=== PATIENT | female | born 1990 | race Hispanic/Latino ===

== ENCOUNTER 2019-03-12 19:06 | Inpatient (IN) | payer MEDICAID ==
[2019-03-12 19:22] VITALS: BMI 35.4
--- NOTE | 2019-03-12 19:37 | ED PDOC ---
Arrival/HPI - General Chief Complaint: Psychiatric Evaluation Time Seen by Provider: 03/12/19 19:17 Historian: Patient - History of Present Illness Narrative History of Present Illness (Text): 03/12/19 19:17 Alex Raman is a 29 year old female, with a history of depression, anxiety, and ADHD, who presents for psychiatric admission from [facility]. Patient appreciates recent history of worsening depression and occasional suicidal ideation. Patient states she "feels fine" denies any somatic complaints. No suicidal ideation at present time. Patient denies fevers, chills, headache, dizziness, shortness of breath, chest pain, abdominal pain, nausea, vomiting, diarrhea, dysuria, hematuria, or any other complaints. Time/Duration: Prior to Arrival Symptom Onset: Gradual Symptom Course: Worsening Activities at Onset: Light Past Medical History - Provider Review Nursing Documentation Reviewed: Yes - Cardiac Hx Cardiac Disorders: No - Pulmonary Hx Asthma: Yes - Neurological Hx Neurological Disorder: No - HEENT Hx HEENT Disorder: No - Renal Hx Renal Disorder: No - Endocrine/Metabolic Hx Endocrine Disorders: No - Hematological/Oncological Hx Blood Disorders: No - Integumentary Hx Dermatological Disorder: No - Musculoskeletal/Rheumatological Hx Musculoskeletal Disorders: No - Gastrointestinal Hx Gastrointestinal Disorders: No - Genitourinary/Gynecological Hx Genitourinary Disorders: No - Psychiatric Hx Psychophysiologic Disorder: Yes Hx Anxiety: Yes Hx Substance Use: Yes (heroin) - Anesthesia Hx Anesthesia: No Family/Social History - Physician Review Nursing Documentation Reviewed: Yes Family/Social History: Unknown Family HX Smoking Status: Never Smoked Hx Alcohol Use: No Hx Substance Use: Yes (heroin) Allergies/Home Meds Allergies/Adverse Reactions: Allergies No Known Allergies Allergy (Verified 03/12/19 23:42) Home Medications: Home Meds Medication Instructions Recorded Confirmed Desvenlafaxine Succinate [Pristiq] 03/12/19 Sebree Carbonate [Sebree 03/12/19 03/12/19 Carbonate 150MG] Review of Systems - Physician Review All systems were reviewed & negative as marked: Yes - Review of Systems Constitutional: absent: Fevers, Other (chills) Respiratory: absent: SOB Cardiovascular: absent: Chest Pain Gastrointestinal: absent: Abdominal Pain, Diarrhea, Nausea, Vomiting Genitourinary Female: absent: Dysuria, Hematuria Neurological: absent: Headache, Dizziness Psychiatric: Depression, Suicidal Ideation Physical Exam Vital Signs Reviewed: Yes Temperature: Afebrile Blood Pressure: Normal Pulse: Regular Respiratory Rate: Normal Appearance: Positive for: Well-Appearing, Non-Toxic, Comfortable Pain Distress: None Mental Status: Positive for: Alert and Oriented X 3 - Systems Exam Head: Present: Atraumatic, Normocephalic Pupils: Present: PERRL Extroacular Muscles: Present: EOMI Conjunctiva: Present: Normal Mouth: Present: Moist Mucous Membranes Neck: Present: Normal Range of Motion Respiratory/Chest: Present: Clear to Auscultation, Good Air Exchange. No: Respiratory Distress, Accessory Muscle Use Cardiovascular: Present: Regular Rate and Rhythm, Normal S1, S2. No: Murmurs, Rub, Gallop Abdomen: Present: Normal Bowel Sounds. No: Tenderness, Distention, Peritoneal Signs, Rebound, Guarding Back: Present: Normal Inspection Upper Extremity: Present: Normal Inspection. No: Cyanosis, Edema Lower Extremity: Present: Normal Inspection. No: Edema Neurological: Present: GCS=15, CN II-XII Intact, Speech Normal Skin: Present: Warm, Dry, Normal Color. No: Rashes Psychiatric: Present: Alert, Oriented x 3, Normal Insight, Normal Concentration Medical Decision Making ED Course and Treatment: 03/12/19 19:17 Impression: Alex Raman is a 29 year old female, with a history of depression, anxiety, and ADHD, who presents for psychiatric admission from [facility]. Plan: -- Reassess and disposition Prior Visits: Notes and results from previous visits were reviewed. Progress Notes: - Scribe Statement The provider has reviewed the documentation as recorded by the Scribe Elpidio Mack All medical record entries made by the Scribe were at my direction and personally dictated by me. I have reviewed the chart and agree that the record accurately reflects my personal performance of the history, physical exam, medical decision making, and the department course for this patient. I have also personally directed, reviewed, and agree with the discharge instructions and disposition. Disposition/Present on Arrival - Present on Arrival Any Indicators Present on Arrival: No History of DVT/PE: No History of Uncontrolled Diabetes: No Urinary Catheter: No History of Decub. Ulcer: No History Surgical Site Infection Following: None - Disposition Have Diagnosis and Disposition been Completed?: Yes Diagnosis: MDD (major depressive disorder) Disposition: HOSPITALIZED Disposition Time: 19:27 Patient Problems: Current Active Problems Problem Status Onset ADHD Acute Bipolar 1 disorder Acute MDD (major depressive disorder) Acute Opioid use disorder Acute Condition: GOOD
[2019-03-12] MEDS ORDERED: Alum-Mag Hydrox-Simethicone Susp (30 mL) PO PRN (22:49)
[2019-03-12] MEDS ORDERED: Magnesium Hydroxide Susp 30 ml UD PO PRN (22:49)
--- NOTE | 2019-03-12 23:48 | PCM.BM ---
<Sangeeta Sun - Last Filed: 03/12/19 23:45> Treatment Plan Problems - Problems identified on initial assessmt Suicidal Ideation Date Initiated: 03/12/19 Time Initiated: 23:46 Assessment reference: NA Status: Active Ineffective Coping Date Initiated: 03/12/19 Time Initiated: 23:47 Assessment reference: NA Status: Active Hopelessness/Helplessness Date Initiated: 03/12/19 Time Initiated: 23:48 Assessment reference: NA Status: Active Low Motivation to Change Date Initiated: 03/12/19 Time Initiated: 23:48 Assessment reference: NA Status: Active Defensive Coping Date Initiated: 03/12/19 Time Initiated: 23:49 Assessment reference: NA Status: Active Treatment assets and liabiliti Patient Assests: adapts well, cooperative, educated, ADL independent, good support system Patient Liabilities: physical pain, substance abuse, medical problems - Milieu Protocol Maintain good personal hygiene: daily Encourage regular showers, daily Remind patient to perform daily oral care, daily Assist patient to perform ADL's Maintain personal safety: every other day Educate patient to report safety concerns to staff, every other day Monitor environment for contraband/sharps Medication safety: Monitor for expected outcome, potential side effects: every other day, Assess barriers to learning: every other day, Assess readiness for medication education: every other day Family Contact Family involvement: Family/SO is involved <Mary Lou Bauer - Last Filed: 03/13/19 15:04> - Diagnosis (1) ADHD Status: Acute Interventions: 03/13/19 15:06 We will not resume stimulants, will start Wellbutrin (2) Opioid use disorder Status: Acute Interventions: 03/13/19 15:06 Pharmacotherapy for alcohol/benzos/opioid dependence Maintaining sobriety Relapse prevention Possible rehabilitation Motivational interviewing 12-step programs: AA meetings (3) Bipolar 1 disorder Status: Acute Interventions: 03/13/19 15:05 Psychoeducation Psychopharmacology/adjustment of medications as needed/ monitoring possible side effects Monitor blood level of mood stabilizers Evaluate pt on daily basis Compliance with medications and follow up appointments Suicide and homicide risk assessment and prevention, coping strategies, safety plan Relapse prevention Reduction of symptoms Improve functional status Family involvement As outpatient: cognitive behavioral therapy <Nidhi Borrero - Last Filed: 03/14/19 12:24> Family Contact Family involvement: Family/SO is involved Family contact: Patient agrees to contact Family contact name: Christa Raman(mother) Family contacted how many times per week?: 2 <Allie Byers - Last Filed: 03/14/19 15:11>
[2019-03-13 04:59] VITALS: O2SAT 99
[2019-03-13 08:00] LABS: GLUCOSE,FASTING 104 mg/dL (65-110); HDL CHOLESTEROL 59 mg/dL (29-60)
[2019-03-13] MEDS ORDERED: Venlafaxine 75 mg ER Cap PO SCH (08:00)
[2019-03-13 08:12] LABS: LDL CHOLESTEROL 156 mg/dL (0-129)
--- NOTE | 2019-03-13 15:04 | PCM.PSYCH ---
Initial Psychiatric Evaluation - Initial Psychiatric Evaluation Type of Admission: Voluntary Legal Status: Capacity Chief Complaint (in patient's own words): "I stopped using heroine 3 months ago, for the past 3 months I am getting worse and worse, lately I was not able to take a shower, I have wish not to be alive anymore, I was thinking of overdose on sleeping pills." Patient's Reaction to Hospitalization: pt was transferred from the [facility] for evaluation of worsening of depression, possible suicidal ideation. History of Present Illness and Precipitating Events: Shortly, Alex Raman is a 29 year old female, with a history of depression, anxiety, and ADHD, denied previous psychiatric admissions, denied previous suicidal attempts, patient initially presented at [facility] with her mother, complaining of worsening depression, inability to function, suicidal ideation, patient required further hospitalization starvation/medication adjustment and acute psychiatric inpatient unit, transfer was uneventful. Patient was seen and examined today at the treatment team meeting with medical student. Patient presented with very poor personal hygiene, good ADLs, long/greasy/uncombed blue hair, patient presented to be emotional labile, crying/smiling/laughing. Patient reported that she has history of opioid addiction, patient reported being sober for past 3 months, as a result patient became depressed, "I had no motivation to do anything, I was staying in bed all day long, I was feeling hopeless, helpless, I was not able to take shower, small task seems to be impossible to do", patient reported that she had occasional suicidal ideation, no intent or plan, "but I was thinking about to overdose on sleeping pills as an option, but I would never do so." Patient reported that she had history of being irritable, mind racing, inability to fall asleep and to stay asleep, multitasking, with no productivity. Patient reported that she was diagnosed with bipolar disorder and ADHD in the past. Patient denied hearing voices, denied seeing things, denied paranoid ideations and patient does not present to be psychotic. Patient reported that she was feeling anxious "on and off" but she is not suffering from anxiety spectrum disorder. Patient reported that she smokes about 4 cigarettes a day or less than that, nicotine patch offered, counseling provided. Patient reported that she also smokes electronic cigarettes and her primary care physician is prescribing medical marijuana to her. Patient denied drinking alcohol, denied other drugs consumption. Past psychiatric history: Patient reported that she was diagnosed with bipolar disorder by her psychiatrist in the past, patient also had testing for ADHD, patient reported that she was prescribed Adderall, patient reported that the present moment she is not seeing psychiatrist and her primary care physician is prescribing all of the medications. Patient denies history of suicidal attempts, never been admitted to the psychiatric inpatient unit. h/o detox at [facility]. Medical history: Stroke asthma, history of Lyme's disease. Family history: Mood spectrum disorder, questionable suicidal attempts. Medical records reviewed: Urine drug screen was positive for benzodiazepines, amphetamines, opioids and cannabis. med list confirmed by pharmacy: vyvance 70mg po daily addearral 30mg po bid pristiq 100mg daily lithium carbonate 300mg 3xat night albuterol 2puff qid junel 1mg/20 (once a dya) lst filled February 18/2019. Lab Results 03/13/19 07:40: RPR Nonreactive 03/13/19 07:40: TSH 3rd Generation 2.02 03/13/19 07:40: Fasting Glucose 104, Triglycerides 123, Cholesterol 244 H, LDL C holesterol Direct 156 H, HDL Cholesterol 59 Vital Signs Temp Pulse Resp BP Pulse Ox 03/13/19 06:32 97.5 F L 59 L 18 134/91 H 03/12/19 22:51 98.5 F 82 18 135/93 H 99 03/12/19 19:52 97.8 F 84 16 136/93 H 100 The patient failed the outpatient lower level of care: Yes Current Medications: Active Medications Generic Name Dose Route Start Last Admin Trade Name Freq PRN Reason Stop Dose Admin Acetaminophen 650 mg 03/12/19 22:49 Tylenol 325mg Tab PO Q6H PRN Fever >100.4 F Al Hydrox/Mg Hydrox/Simethicone 30 ml 03/12/19 22:49 Maalox Plus 30 Ml PO DAILY PRN Indigestion / Heartburn Clonazepam 0.5 mg 03/12/19 21:12 03/13/19 00:37 Klonopin PO 0.5 mg Q8H PRN Administration Anxiety Protocol Magnesium Hydroxide 30 ml 03/12/19 22:49 Milk Of Magnesia PO DAILY PRN Constipation Venlafaxine HCl 75 mg 03/13/19 08:00 Effexor Xr PO DAILY NESSA Zaleplon 10 mg 03/12/19 21:12 03/12/19 21:51 Sonata PO 10 mg HS PRN Administration Insomnia Present on Admission - Present on Admission Any Indicators Present on Admission: No History of DVT/PE: No History of Uncontrolled Diabetes: No Urinary Catheter: No Decubitus Ulcer Present: No Review of Systems - Review of Systems Systems not reviewed;Unavailable: Acuity of Condition - Constitutional Constitutional: As Per HPI - EENT Eyes: As Per HPI Ears: As Per HPI Nose/Mouth/Throat: As Per HPI - Breasts Breasts: As Per HPI - Cardiovascular Cardiovascular: As Per HPI - Respiratory Respiratory: As Per HPI - Gastrointestinal Gastrointestinal: As Per HPI - Genitourinary Genitourinary: As Per HPI - Reproductive: Female Reproductive:Female: As Per HPI - Menstruation Menstruation: As Per HPI - Musculoskeletal Musculoskeletal: As Per HPI - Integumentary Integumentary: As Per HPI - Neurological Neurological: As Per HPI - Psychiatric Psychiatric: As Per HPI - Endocrine Endocrine: As Per HPI - Hematologic/Lymphatic Hematologic: As Per HPI Past Patient History - Past Psychiatric History Previous Treatment History: None Prior Professional Help: See HPI Prior Psychiatric Treatment: See HPI At what hospital: See HPI Duration: See HPI Nature of Treatment: See HPI Explanation of prior treatment: See HPI - PSYCHIATRIC Hx Anxiety: Yes Hx Depression: Yes Hx Substance Use: Yes - CARDIAC Hx Cardiac Disorders: No - PULMONARY Hx Asthma: Yes - NEUROLOGICAL Hx Neurological Disorder: No - HEENT Hx HEENT Problems: No - RENAL Hx Chronic Kidney Disease: No - ENDOCRINE/METABOLIC Hx Endocrine Disorders: No - HEMATOLOGICAL/ONCOLOGICAL Hx Blood Disorders: No - INTEGUMENTARY Hx Dermatological Problems: No - MUSCULOSKELETAL/RHEUMATOLOGICAL Hx Musculoskeletal Disorders: No - GASTROINTESTINAL Hx Gastrointestinal Disorders: No - GENITOURINARY/GYNECOLOGICAL Hx Genitourinary Disorders: No - SURGICAL HISTORY Hx Surgeries: No - ANESTHESIA Hx Anesthesia: No - Medical/Surgical History Reviewed & confirmed: by ct Meds Allergies/Adverse Reactions: Allergies Allergy/AdvReac Type Severity Reaction Status Date / Time No Known Allergies Allergy Verified 03/12/19 23:42 Mental Status Examination - Personal Presentation Personal Presentation: Looks stated age - Affect Affect: Other (labile) - Motor Activity Motor Activity: Calm - Reliability in Providing Information Reliability in Providing Information: Fair - Speech Speech: Organized - Mood Mood: Depressed, Anxious - Formal Thought Process Formal Thought Process: No Impairment - Obsessions/Compulsions Obsessions: None Compulsions: None - Cognitive Functions Orientation: Person, Place, Situation, Time Sensorium: Alert Attention/Concentration: Easily distracted Abstract Thinking: [place] Estimate of Intelligence: Average Judgement: Intact, as evidence by: Insight regarding need for hospitalization - Risk Risk: Suicidal, Diminished functioning - Strength & Assets Inventory Strength & Assets Inventory: Intelligence, Family support, Cooperative, Other (Good physical health, no psychosis, good support from family) - Limitations Limitations: Other (drugs) Psychiatric Physical Exam - Physical Exam Reviewed and confirmed: Emergency Department Physical Exam Results - Vital Signs Recent Vital Signs: Last Vital Signs Temp 97.5 F L 03/13/19 06:32 Pulse 59 L 03/13/19 06:32 Resp 18 03/13/19 06:32 BP 134/91 H 03/13/19 06:32 Pulse Ox 99 03/12/19 22:51 - Labs Labs: Laboratory Results - last 24 hr 03/13/19 03/13/19 07:40 07:40 Fasting Glucose 104 Triglycerides 123 Cholesterol 244 H LDL Cholesterol Direct 156 H HDL Cholesterol 59 TSH 3rd Generation 2.02 - EKG Data EKG Interpreted by: ER Physician DSM Plan - DSM 5 DSM 5 Diagnosis: History of bipolar disorder Questionable ADHD Rule out substance-induced mood disorder Urine drug screen was positive for cannabis/opioid/benzodiazepines, rule out misuse and abuse of substances Opioid use disorder - Recommended/Plan of Treatment Treatment Recommendations and Plan of Treatment: Milieu/structure/supportive therapy SW consultation for discharge plan and social issues Med management Abilify 2.5 mg twice a day for mood stabilization Wellbutrin 100 mg twice a day for depression and ADHD Klonopin 0.5 mg twice daily and at bedtime for anxiety Ambien 5 mg as needed for insomnia We will not resume stimulants as of now Family involvement Family involvement Follow up on labs Will monitor closely Pt was educated about risk/benefits and alternatives of medications, coping strategies (safety plan, suicide prevention), relapse prevention, importance of follow up with psychiatrist and therapist, stay away from drugs/alcohol/smoking Projected ELOS: 7 days Prognosis: Vomited Discharge Plan and Discharge Criteria: Patient will pose no imminent danger to self or others - Tobacco Cessation Tobacco Use Status for the last 30 days: Light User(<=4 cigs daily, cigar/pipes not daily,or smokeless tobacco) Tobacco Use Treatment Practical Counseling Provided: Yes Tobacco Use Treatment FDA-Approved Cessation Medication Provided: Yes Type of Medication Provided: Nicoderm CQ - Alcohol or Substance Abuse Does the patient have an Alcohol or Substance Abuse Disorder: Yes Initial Psych Certification - Initial Certification I certify that the inpatient psychiatric facility admission was medically necessary for either: Treatment which could reasonbly be expected to improve pt's condition I estimate of hospitalization is necessary for proper treatment of the patient: 7 Unit of Time: Days My plans for post-hospital care for this patient are: Diagnosis program versus inpatient rehab, IOP
[2019-03-13] MEDS ORDERED: Albuterol HFA 90 mcg/actuation (8 g) IH PRN (21:24)
--- NOTE | 2019-03-14 07:58 | CON ---
DATE OF CONSULTATION: 03/13/2019 PULMONARY CONSULTATION REFERRING PHYSICIAN: Dr. Barreto. REASON FOR CONSULTATION: Chronic obstructive lung disease, may have sleep apnea syndrome. HISTORY OF PRESENT ILLNESS: This is a 29-year-old female with past medical history significant for bipolar disorder, history of chronic obstructive lung disease, smoker, history of substance abuse, also carry a diagnosis of ADHD, came in to psychiatry floor through emergency room. Apparently, she had been very depressed. She also used to smoke marijuana in the past, admit to have snoring, daytime sleepy, and tired. No nausea, vomiting, diarrhea, leg pain, or leg swelling. PAST MEDICAL HISTORY: As per history of present illness. ALLERGIES: NONE KNOWN. SOCIAL HISTORY: Positive history of smoking, also positive history of marijuana smoke, as well as had used in the past. FAMILY HISTORY: No significant cardiopulmonary disease reported. MEDICATIONS: She is on Abilify 2.5 mg twice a day, Ambien 5 mg at bedtime, Ativan 2 mg every 6 hours p.r.n., Geodon 20 mg every 6 hours p.r.n., Klonopin 0.5 mg twice a day, milk of magnesia p.r.n., Nicoderm patch daily, Wellbutrin 100 mg twice a day. REVIEW OF SYSTEMS: No headache, no rhinitis, no cough, no sputum production, admits to have snoring, daytime sleepy and tired. No nausea, no vomiting, no diarrhea, no leg pain, and no leg swelling. PHYSICAL EXAMINATION: GENERAL: No acute distress. VITAL SIGNS: Temperature is 98, heart rate 71, respiratory rate is 18, blood pressure 131/88, pulse ox 99% on room air. HEENT: Moist mucous membrane. Crowded airway. NECK: Supple. No JVD. LUNGS: Have fair airflow with rhonchi. ABDOMEN: Soft, nontender, no organomegaly. EXTREMITIES: There is no edema. NEUROLOGIC: Awake, alert, and follows simple commands. LABORATORY DATA: Shows glucose 104, triglycerides 123, cholesterol 244, HDL cholesterol 59, TSH 2.05. RPR being nonreactive. IMPRESSION AND PLAN: Bipolar disorder with major depression at present, history of attention deficit hyperactivity disorder, history of substance abuse may have chronic lung disease, there may be a component of sleep apnea syndrome. Agree with Dr. Barreto with the present management. We will add Ventolin HFA every 4 hours p.r.n., sleep apnea precaution, keep head at 45 degrees, gastric prophylaxis, may add statins. Upon discharge, as outpatient she should have a sleep study and PFT. Thank you and we will follow with you. Gilberto Del Rio MD
--- NOTE | 2019-03-14 13:51 | PCM.PYCHPN ---
Psychiatric Progress Note - Psychiatric Progress Note Patient seen today, length of contact: 30min Patient Chief Complaint: "I don't understand why you are not recommending me to continue my adderral and vyvance, I disagree that Marijuana is bad choice for me..." Problems Identified/Issues Discussed: Risk, benefits, alternatives of the medications, substance abuse/addiction, treatment options, inpatient rehab referral. Medical Problems: See HPI Diagnostic Results: Lab Results 03/13/19 07:40: RPR Nonreactive 03/13/19 07:40: TSH 3rd Generation 2.02 03/13/19 07:40: Fasting Glucose 104, Triglycerides 123, Cholesterol 244 H, LDL Cholesterol Direct 156 H, HDL Cholesterol 59 Vital Signs Temp Pulse Resp BP Pulse Ox 03/14/19 13:34 132/87 03/14/19 07:15 98.4 F 82 20 132/87 03/13/19 16:00 71 131/88 03/13/19 06:32 97.5 F L 59 L 18 134/91 H 03/12/19 22:51 98.5 F 82 18 135/93 H 99 03/12/19 19:52 97.8 F 84 16 136/93 H 100 DSM 5 Symptoms Update: Shortly, Alex Raman is a 29 year old female, with a history of depression, anxiety, and ADHD, denied previous psychiatric admissions, denied previous suicidal attempts, patient initially presented at [facility] with her mother, complaining of worsening depression, inability to function, suicidal ideation, patient required further hospitalization starvation/medication adjustment and acute psychiatric inpatient unit, transfer was uneventful. Patient was seen and examined today at the treatment team meeting with healthcare social worker, mental health worker, RN, medical. Patient presented with acceptable personal hygiene but seems to be careless about her appearance, has long/uncombed hair colored blue. Patient was fixated on Adderall as well as Vyvanse, patient was not able to understand the rationale behind this development writer decision to discontinue stimulants. Patient also disagreed that marijuana,which was prescribed to the patient by primary care physician, is not a good choice for her. Patient has tendency of bleeding staff, has difficulty to understand what was the main reason for her to be admitted to the psychiatric inpatient unit. Patient is irritable, wants to be on stimulants, patient refused referral to go to inpatient rehab, but agreed to be referred to the treatment program at [facility]. As per collateral information from the staff patient has tendency of yelling/screaming at her mother over the phone, patient reported that she has tendency for irrational and agitated behavior but no physical aggression. So far patient tolerates medications well, no side effects observed or reported, aims 0, no EPS. Impression: DSM 5 Diagnosis: History of bipolar disorder Questionable ADHD Rule out substance-induced mood disorder Urine drug screen was positive for cannabis/opioid/benzodiazepines, rule out misuse and abuse of substances Opioid use disorder Medication Change: Yes (Klonopin increased) Medical Record Reviewed: Yes Consults ordered or reviewed: Medical consult and pulmonology consult requested Mental Status Examination - Cognitive Function Orientation: Person, Place, Situation, Time Memory: Intact Attention: Poor Concentration: Poor Association: WNL Fund of Knowledge: WNL - Mood Mood: Depressed, Anxious - Affect Affect: Constricted (Irritable and angry) - Speech Speech: Appropriate (But overproductive) - Formal Thought Process Formal Thought Process: No Impairment - Suicidal Ideation Suicidal Ideation: No - Homicidal Ideation Homicidal Ideation: No Goal/Treatment Plan - Goal/Treatment Plan Need for Continued Stay: Remain at risks for inpatient hospitalization, Severe depression anxiety, Discharge may exacerbated symptoms, Severe functional impairment Progress Toward Problem(s) and Goals/Treatment Plan: Milieu/structure/supportive therapy SW consultation for discharge plan and social issues Med management Abilify 5 mg twice a day for mood stabilization Wellbutrin 100 mg twice a day for depression and ADHD Klonopin 1 mg twice daily and at bedtime for anxiety Ambien 5 mg as needed for insomnia We will not resume stimulants as of now Family involvement Family involvement Follow up on labs Will monitor closely Pt was educated about risk/benefits and alternatives of medications, coping strategies (safety plan, suicide prevention), relapse prevention, importance of follow up with psychiatrist and therapist, stay away from drugs/alcohol/smoking Estimated Date of D/C: 03/20/19
--- NOTE | 2019-03-14 16:15 | PN ---
DATE: 03/14/2019 PULMONARY PROGRESS NOTE REFERRING PHYSICIAN: Dr. Barreto. SUBJECTIVE: He sitting up in the chair, having lunch, night was unremarkable other than an episode of cough. No nausea or vomiting, diarrhea, leg swelling. PHYSICAL EXAMINATION VITAL SIGNS: Temperature is 98, heart rate 82, respiratory rate is 20, blood pressure 132/87, pulse of 99% on room air. HEENT: Moist mucous membrane. Crowded airway. Mallampati score is 4. NECK: Supple. No JVD. LUNGS: Has a fair airflow with few rhonchi. HEART: S1, S2. ABDOMEN: Soft, nontender. No organomegaly. EXTREMITIES: No edema. NEUROLOGIC: Awake, alert, and follows simple commands. LABORATORY DATA: Shows no new lab is available since yesterday. MEDICATIONS: She is on Abilify 2.5 mg twice a day.. Also Ambien 5 mg at bedtime, lorazepam 2 mg every 6 hours p.r.n., Geodon 20 mg every 6 hours p.r.n., Klonopin 0.5 mg at bedtime, Lipitor 20 mg daily, Maalox p.r.n. basis, Nicoderm patch daily, Norvasc 2.5 mg daily, Pepcid 20 mg daily, Tylenol p.r.n. basis, albuterol at bedtime 2 puffs every 6 hours p.r.n., Wellbutrin 100 mg twice a day. IMPRESSION AND PLAN: Bipolar disorder with major depression, history of attention deficit hyperactivity disorder, substance abuse, chronic lung disease may be component of sleep apnea syndrome. From Pulmonary point, doing okay. The patient request for rescue inhaler when she has cough and shortness of breath and sleep apnea precaution, keep head at 45 degrees, careful with sedation, gastric prophylaxis, fall precaution. We will recommend PFT and sleep study upon discharge as an outpatient. Thank you and we will follow with you. Gilberto Del Rio MD
--- NOTE | 2019-03-14 20:52 | CON ---
DATE: 03/14/2019 HISTORY OF PRESENT ILLNESS: I was called to Psychiatry for a consult to see her. I saw her in her room. She is a 29-year-old white female who presents for admission from [facility], worsening depression and suicidal ideation, just not doing well mentally. She is here with a pretty extensive medical history of asthma, anxiety, substance abuse with heroin. She tells me she has Lyme's disease and on steroids and then she had bilateral hip replacements. She has spine fractures, asthma and now she is here. She was taking Pristiq and lithium on the outpatient. ALLERGIES: NO KNOWN DRUG ALLERGIES. REVIEW OF SYSTEMS: No acute fevers or chills. No vision or hearing changes. No sore throat. No shortness of breath or cough. No chest pain. No palpitations. No nausea, vomiting, constipation and diarrhea. No problems urinating. No headaches or dizziness, depressed and suicidal. PHYSICAL EXAMINATION: VITAL SIGNS: She has 98.5 temperature, 82 pulse, 135/93 in the past blood pressure was 132/87, I will start her on blood pressure medications, 18 respiratory rate and 99% O2 sat on room air. HEENT: Head is atraumatic and normocephalic. Extraocular muscles are intact. Pupils reactive to light and accommodation. Throat is moist. NECK: Supple. HEART: Regular rate. Normal S1 and S2. LUNGS: Decreased breath sounds. Clear to auscultations. No wheezes. No rhonchi. No rales. ABDOMEN: Soft and nontender. Positive bowel sounds. No guarding. No rebound. No CVA tenderness. Mildly obese. EXTREMITIES: No edema. NEUROLOGIC: GCS is 15. Cranial nerves II through XII grossly intact. Speech is normal. SKIN: Warm and dry. No apparent rashes or ulcers. Alert and oriented x3. She can smell. She can close her eyes tight. She can stick her tongue in midline. She can raise her arms overhead. I do not like her history all that much. LABORATORY DATA: She has a nonreactive RPR of 104 fasting sugar, triglycerides are 123, cholesterol is high at 244, TSH is 2.02. PLAN: She is also going to get some tests done. She will be on amlodipine, a blood test. I am going to watch her closely and check her blood pressure and hopefully she will improve with her depression and suicidal thoughts as per Psychiatry, we will watch medically. Charles Snell DO
[2019-03-15 08:26] LABS: HEMOGLOBIN 13.6 g/dL (12.0-16.0); MEAN CELL VOLUME 83.6 fl (80.0-105.0); MEAN CORPUSCULAR HEMOGLOBIN 27.9 pg (25.0-35.0); MEAN CORPUSCULAR HGB CONC 33.4 g/dl (31.0-37.0); RBC 4.87 10^6/uL (3.5-6.1); WHITE BLOOD COUNT 7.1 10^3/uL (4.5-11.0)
[2019-03-15 08:31] LABS: ALB/GLOB RATIO 1.3 (1.1-1.8); ALBUMIN 4.5 g/dL (3.0-4.8); ALT/SGPT 15 U/L (7-56); AST/SGOT 16 U/L (14-36); BLOOD UREA NITROGEN 17 mg/dL (7-21); CALCIUM 9.5 mg/dL (8.4-10.5); GFR NON-AFRICAN AMERICAN > 60
--- NOTE | 2019-03-15 10:12 | PN ---
DATE: 03/15/2019 SUBJECTIVE: I saw her this morning in the psychiatric floor. She had many questions to me. She is asking why she is on blood pressure pills. I told her the blood pressure was elevated, it was as high as 136/93, after the blood pressure medication it is down to 122/81. She is eating well, going to the bathroom well. She also has questions about her cholesterol issues. Cholesterol was 244 and the LDL was 156, so she is now on atorvastatin 20. She does have high cholesterol and hypertension with her mother, otherwise mentally I think she may be improving a little bit. PHYSICAL EXAMINATION: VITAL SIGNS: She has a 98 temp, 73 pulse, 122/81 and 135/93 blood pressure, 20 respiratory rate. HEAD: Atraumatic, normocephalic. HEART: Regular rate. LUNGS: Clear to auscultation. ABDOMEN: Soft, obese, nontender. EXTREMITIES: No edema. LABORATORY DATA: Sodium 142, potassium 4.1, BUN 17, creatinine 0.9, GFR is greater than 60, sugar 99, calcium 9.5, total bili is 0.4. AST is 16, ALT is 15, alk phos 64, total protein 7.9, albumin is 4.5, cholesterol is 244, LDL is 156. HDL was 59. TSH is 2.02. White count 7.1, hemoglobin 13.6, hematocrit 40.7, platelets of 227. RPR is nonreactive. She will continue with the current medications, Abilify, Ambien, Ativan, Geodon, Klonopin, Lipitor, milk of magnesia, Maalox, Nicoderm, Norvasc, Pepcid, Tylenol, Ventolin, and Wellbutrin. I discussed at length the importance of quit smoking, also to watch her very healthy diet, to lose some weight and exercise. She understood and asked me lots of questions about that and hopefully, she will continue to improve as per Psychiatry. We will follow medically. She has had depression, suicidal ideation, bipolar, ADHD, asthma, hypertension, high cholesterol. Charles Snell DO
[2019-03-15] MEDS ORDERED: Albuterol HFA 90 mcg/actuation (8 g) IH PRN (11:24)
--- NOTE | 2019-03-15 11:53 | PCM.PYCHPN ---
Psychiatric Progress Note - Psychiatric Progress Note Patient seen today, length of contact: 30min Patient Chief Complaint: "I am not doing well, I will withdrawing from my Adderall" Problems Identified/Issues Discussed: Risk, benefits, alternatives of the medications, substance abuse/addiction, treatment options, inpatient rehab referral. Medical Problems: See HPI Diagnostic Results: Lab Results 03/13/19 07:40: RPR Nonreactive 03/13/19 07:40: TSH 3rd Generation 2.02 03/13/19 07:40: Fasting Glucose 104, Triglycerides 123, Cholesterol 244 H, LDL Cholesterol Direct 156 H, HDL Cholesterol 59 Vital Signs Temp Pulse Resp BP Pulse Ox 03/14/19 13:34 132/87 03/14/19 07:15 98.4 F 82 20 132/87 03/13/19 16:00 71 131/88 03/13/19 06:32 97.5 F L 59 L 18 134/91 H 03/12/19 22:51 98.5 F 82 18 135/93 H 99 03/12/19 19:52 97.8 F 84 16 136/93 H 100 DSM 5 Symptoms Update: Shortly, Alex Raman is a 29 year old female, with a history of depression, anxiety, and ADHD, denied previous psychiatric admissions, denied previous suicidal attempts, patient initially presented at [facility] with her mother, complaining of worsening depression, inability to function, suicidal ideation, patient required further hospitalization starvation/medication adjustment and acute psychiatric inpatient unit, transfer was uneventful. Patient was seen and examined today Nursing station, patient presented with some improvement of her personal hygiene, patient reported that her depression is getting better but she feels very uncomfortable because of "withdrawal from my Adderall" patient reported that she was on Adderall for past 6 years over patient was on Vyvanse. It took a while for this greeting card writer tried to explain the rationale for importance to be weaned off from Adderall, patient's mother will bring that medication and patient agreed slowly jeff down that medication. Patient also reported that she is willing to follow-up with a substance abuse day treatment program. pt c/o insomnia, ambien started. As per collateral information from the staff patient has tendency of yelling/screaming at her mother over the phone, patient reported that she has tendency for irrational and agitated behavior but no physical aggression. So far patient tolerates medications well, no side effects observed or reported, aims 0, no EPS. Impression: DSM 5 Diagnosis: History of bipolar disorder Questionable ADHD Rule out substance-induced mood disorder Urine drug screen was positive for cannabis/opioid/benzodiazepines, rule out misuse and abuse of substances Opioid use disorder Medication Change: Yes (Klonopin increased) Medical Record Reviewed: Yes Mental Status Examination - Cognitive Function Orientation: Person, Place, Situation, Time Memory: Intact Attention: Poor Concentration: Poor Association: WNL Fund of Knowledge: WNL - Mood Mood: Depressed, Anxious - Affect Affect: Constricted (Irritable and angry) - Speech Speech: Appropriate (But overproductive) - Formal Thought Process Formal Thought Process: No Impairment - Suicidal Ideation Suicidal Ideation: No - Homicidal Ideation Homicidal Ideation: No Goal/Treatment Plan - Goal/Treatment Plan Need for Continued Stay: Remain at risks for inpatient hospitalization, Severe depression anxiety, Discharge may exacerbated symptoms, Severe functional impairment Progress Toward Problem(s) and Goals/Treatment Plan: Milieu/structure/supportive therapy SW consultation for discharge plan and social issues Med management Abilify 5 mg twice a day for mood stabilization Wellbutrin 100 mg twice a day for depression and ADHD Klonopin 1 mg twice daily and at bedtime for anxiety Ambien 10 mg as needed for insomnia We will not resume stimulants as of now,possible resumption with the plan to wean off Family involvement Family involvement Follow up on labs Will monitor closely Pt was educated about risk/benefits and alternatives of medications, coping strategies (safety plan, suicide prevention), relapse prevention, importance of follow up with psychiatrist and therapist, stay away from drugs/alcohol/smoking Estimated Date of D/C: 03/20/19
--- NOTE | 2019-03-15 12:55 | PN ---
DATE: 03/15/2019 PULMONARY PROGRESS NOTE REFERRING PHYSICIAN: Mary Lou Bauer MD SUBJECTIVE: The patient is seen walking in hallway. No acute distress. No overnight events reported. States that she still has episodes of coughing in the morning. No headache, rhinitis, shortness of breath, chest pain, abdominal pain, nausea, vomiting, diarrhea, leg pain, and leg swelling reported. OBJECTIVE: GENERAL: No acute distress. VITAL SIGNS: Blood pressure 135/93, pulse 73, temperature 98. HEENT: Moist mucous membrane. Crowded airway. Mallampati score of 4. NECK: Supple. No JVD. LUNGS: Fair airflow bilaterally. CARDIOVASCULAR: S1 and S2. ABDOMEN: Soft and nontender. No distention. No organomegaly. EXTREMITIES: No bilateral lower extremity edema. NEUROLOGIC: Awake, alert and verbal. Following commands. MEDICATIONS: Reviewed. Tylenol 650 mg every 6 hours p.r.n. fever greater than 100.4, Maalox 30 mL p.o. daily p.r.n., Ventolin HFA 2 puffs inhalation every 6 hours p.r.n., Norvasc 2.5 mg daily, Abilify 2.5 mg twice a day, Lipitor 20 mg dinner, Wellbutrin 100 mg twice a day, Klonopin 0.5 mg at bedtime, Klonopin 1 mg twice a day p.r.n., Pepcid 20 mg h.s., Ativan 2 mg IM every 6 hours p.r.n., Ativan 2 mg p.o. every 6 hours p.r.n., milk of magnesia 30 mL p.o. daily p.r.n., nicotine patch transdermal daily, Geodon 20 mg every 6 hours p.r.n., Geodon 20 mg IM every 6 hours p.r.n., Ambien 10 mg at bedtime. LABORATORY DATA: Reviewed. WBC 7.1, RBC 4.87, hemoglobin 13.6, hematocrit 40.7, platelet 227. Sodium 142, potassium 4.1, chloride 106, carbon dioxide 26, anion gap 16, BUN 70, creatinine 0.9, GFR greater than 60, random glucose 99, calcium 9.5. Total bilirubin 3.4, AST 16, ALT 15, alkaline phosphatase 64, total protein 7.9, albumin 4.5, globulin 3.4, albumin-globulin ratio 1.3. IMPRESSION AND PLAN: Bipolar with major depression, history of attention deficit hyperactivity disorder, substance abuse, chronic lung disease, suspected sleep apnea syndrome. Pulmonary point of view, discussed with the patient yesterday to request from nursing p.r.n. inhaler. The patient has not requested and still continues to complain of cough, so we will place Ventolin HFA 2 puffs every 8 hours around the clock for cough and shortness of breath. Sleep apnea precaution, head of bed elevated to 45 degrees. Careful with sedation. Gastric prophylaxis. Fall precautions. Recommend the patient to have full pulmonary function test as outpatient to evaluate the extent of chronic lung disease. Recommend the patient to have sleep study as outpatient to evaluate for sleep apnea syndrome. We will also continue Ventolin on p.r.n. basis. The patient was seen and examined with Dr. Del Rio. Discussed assessment and plan as described above. The patient was seen and examined with Darrel Jaime, nurse practitioner. Discussed assessment and plan as described above. Thank you for this consult. We will follow with you. Darrel Jaime APN Gilberto Del Rio MD
[2019-03-15] MEDS: Albuterol HFA 90 mcg/actuation (8 g) IH SCH ×2 (13:26→20:16)
[2019-03-16] MEDS: Albuterol HFA 90 mcg/actuation (8 g) IH SCH ×3 (04:39→22:00)
--- NOTE | 2019-03-16 11:43 | PN ---
DATE: 03/16/2019 PULMONARY PROGRESS NOTE REFERRING PHYSICIAN: Mary Lou Bauer MD SUBJECTIVE: The patient is seen in dayroom. Reports feeling better today. Reports cough has improved. No acute distress. No overnight events reported. No headache, rhinitis, shortness of breath, chest pain, abdominal pain, nausea, vomiting, diarrhea, leg pain or leg swelling reported. OBJECTIVE: GENERAL: No acute distress. VITAL SIGNS: Blood pressure 137/93, pulse 91, temperature 97.5. HEENT: Moist mucous membranes. Mallampati score of 4. Crowded airway. NECK: Supple. No JVD. LUNGS: Fair airflow bilaterally. CARDIOVASCULAR: S1 and S2. ABDOMEN: Soft and nontender. No distention. No organomegaly. EXTREMITIES: No bilateral lower extremity edema. NEUROLOGIC: Awake, alert and verbal. Following commands. MEDICATIONS: Reviewed. Tylenol 650 mg every 6 hours p.r.n. fever greater than 100.4, Maalox 30 mL p.o. daily p.r.n., albuterol 2 puffs inhalation every 4 hours p.r.n., albuterol 2 puffs inhalation every 8 hours, Norvasc 5 mg p.o. daily, Abilify 2.5 mg twice a day, Lipitor 20 mg dinner, Wellbutrin 100 mg twice a day, Klonopin 0.5 mg at bedtime, Klonopin 1 mg twice a day p.r.n., Pepcid 20 mg at bedtime, Ativan 2 mg IM every 6 hours p.r.n., Ativan 2 mg p.o. every 6 hours p.r.n., milk of magnesia 30 mL p.o. daily, nicotine patch transdermal daily, Geodon 20 mg every 6 hours p.r.n., Geodon 20 mg IM every 6 hours p.r.n., Ambien 10 mg p.o. at bedtime. LABORATORY DATA: Reviewed. IMPRESSION AND PLAN: Bipolar major depression, history of attention deficit hyperactivity disorder, substance abuse, chronic lung disease, suspected sleep apnea syndrome. Pulmonary point of view, continue Ventolin inhaler, routine sleep apnea precaution, head of bed elevated at 45 degrees, gastric prophylaxis, careful with sedation, fall precautions. Recommend the patient have full pulmonary function test as outpatient to evaluate the extent of chronic lung disease. Recommend the patient have sleep study as outpatient to evaluate for sleep apnea syndrome. Continue smoking cessation. The patient was seen and examined with Dr. Del Rio. Discussed assessment and plan as described above. The patient was seen and examined with Darrel Jaime, nurse practitioner. Discussed assessment and plan as described above. Thank you for this consult and we will follow with you. Yeni Rojo APN Gilberto Del Rio MD
--- NOTE | 2019-03-16 13:18 | PN ---
DATE: 03/16/2019 SUBJECTIVE: I saw her this morning in the psychiatric floor. She has lots of questions about her blood pressure and why she needs the blood pressure medication. She does eat a lot of salt in her diet. I asked her to quit the salt and I am going to increase her Norvasc from 2.5 to 5 mg today because the blood pressure is a little bit elevated, otherwise, she is doing well improving with a mental illness. MEDICATIONS: She is on Abilify, Ambien, Ativan, Geodon, Klonopin, Lipitor for high cholesterol, milk of magnesia, Maalox, Nicoderm, she is going to try and quit smoking. I increase the Norvasc to 5 mg, Pepcid, Tylenol, Ventolin and Wellbutrin. PHYSICAL EXAMINATION: VITAL SIGNS: She has a 97.5 temp, 91 pulse, blood pressure went up to 137/93, 16 respiratory rate. HEENT: Head is atraumatic, normocephalic. HEART: Regular rate. LUNGS: Decreased breath sounds. ABDOMEN: Soft, obese. EXTREMITIES: No edema. ASSESSMENT AND PLAN: amlodipine. She is going to stop getting salt to all her food. She is going to watch her low cholesterol diet also. Follow with the health and human performance professor and psychiatrist and hopefully her blood pressure will come down. We will follow. Charles Snell DO MTDD
--- NOTE | 2019-03-16 16:11 | PCM.PYCHPN ---
Psychiatric Progress Note - Psychiatric Progress Note Patient seen today, length of contact: 30min Patient Chief Complaint: "this is the first day when I feel better..." Problems Identified/Issues Discussed: Risk, benefits, alternatives of the medications, substance abuse/addiction, treatment options, inpatient rehab referral. Medical Problems: See HPI Diagnostic Results: Lab Results 03/13/19 07:40: RPR Nonreactive 03/13/19 07:40: TSH 3rd Generation 2.02 03/13/19 07:40: Fasting Glucose 104, Triglycerides 123, Cholesterol 244 H, LDL Cholesterol Direct 156 H, HDL Cholesterol 59 Vital Signs Temp Pulse Resp BP Pulse Ox 03/14/19 13:34 132/87 03/14/19 07:15 98.4 F 82 20 132/87 03/13/19 16:00 71 131/88 03/13/19 06:32 97.5 F L 59 L 18 134/91 H 03/12/19 22:51 98.5 F 82 18 135/93 H 99 03/12/19 19:52 97.8 F 84 16 136/93 H 100 DSM 5 Symptoms Update: Shortly, Alex Raman is a 29 year old female, with a history of depression, anxiety, and ADHD, denied previous psychiatric admissions, denied previous suicidal attempts, patient initially presented at [facility] with her mother, complaining of worsening depression, inability to function, suicidal ideation, patient required further hospitalization starvation/medication adjustment and acute psychiatric inpatient unit, transfer was uneventful. Patient was seen and examined today next to the nursing station, patient presented with some improvement of her personal hygiene, patient also has some "was with her symptoms. Patient reported that today is the first day when she does not feel that anxious. Patient reported that she had difficulty to fall asleep and stay asleep, this ghost writer educated patient about trazodone risk/benefits/alternatives discussed. Initially patient was very resistant to discontinue Adderall/Vyvanse. So far patient is happy about her current medication regimen, patient reported that her mood is improving, still has difficulty to concentrate and stay focused, patient was willing to increase Wellbutrin today. As per collateral information from the staff patient has tendency of yelling/screaming at her mother over the phone, patient reported that she has tendency for irrational and agitated behavior but no physical aggression. So far patient tolerates medications well, no side effects observed or reported, aims 0, no EPS. Impression: DSM 5 Diagnosis: History of bipolar disorder Questionable ADHD Rule out substance-induced mood disorder Urine drug screen was positive for cannabis/opioid/benzodiazepines, rule out misuse and abuse of substances Opioid use disorder Medication Change: Yes (wellbutrin increased ad given XL, trazodone added, abilify ) Medical Record Reviewed: Yes Mental Status Examination - Cognitive Function Orientation: Person, Place, Situation, Time Memory: Intact Attention: Poor (Some improvement) Concentration: Poor (Some improvement) Association: WNL Fund of Knowledge: WNL - Mood Mood: Depressed ("I feel better"), Anxious - Affect Affect: Constricted (Less irritable) - Speech Speech: Appropriate (But overproductive) - Formal Thought Process Formal Thought Process: No Impairment - Suicidal Ideation Suicidal Ideation: No - Homicidal Ideation Homicidal Ideation: No Goal/Treatment Plan - Goal/Treatment Plan Need for Continued Stay: Remain at risks for inpatient hospitalization, Severe depression anxiety, Discharge may exacerbated symptoms, Severe functional impairment Progress Toward Problem(s) and Goals/Treatment Plan: Milieu/structure/supportive therapy SW consultation for discharge plan and social issues Med management Abilify 5 mg a day for mood stabilization Wellbutrin XL 300mg a day for depression and ADHD Klonopin 1 mg twice daily and at bedtime for anxiety Ambien 10 mg as needed for insomnia Trazodone 50 mg at nighttime for depression and insomnia We will not resume stimulants as of now,possible resumption with the plan to wean off Family involvement Family involvement Follow up on labs Will monitor closely Pt was educated about risk/benefits and alternatives of medications, coping strategies (safety plan, suicide prevention), relapse prevention, importance of follow up with psychiatrist and therapist, stay away from drugs/alcohol/smoking Estimated Date of D/C: 03/20/19
[2019-03-17] MEDS ORDERED: buPROPion 150 mg/24 Hours XL Tab PO SCH (08:00)
[2019-03-17] MEDS: buPROPion 150 mg/24 Hours XL Tab PO SCH (08:55)
--- NOTE | 2019-03-17 09:57 | PCM.PYCHPN ---
Psychiatric Progress Note - Psychiatric Progress Note Patient seen today, length of contact: 30min Problems Identified/Issues Discussed: I reviewed assessment and recent notes. Patient was interviewed in the dayroom. She is alert and well-oriented to circumstances. Grooming is adequate and she was observed socializing with other patients. Patient has been labile and demanding on the unit, complaining that she hasn't been receiving stimulants "I have been on them for 6 years!" and that her sleep remains poor. Patient requests that her night time medications are adjusted. She also reports that klonopin isn't as effective anymore. Otherwise she denies s/e from her medication regimen at this time, denies new discomfort or pain. Seems brighter, more interactive and future oriented. Diagnostic Results: History of bipolar disorder Questionable ADHD Rule out substance-induced mood disorder Urine drug screen was positive for cannabis/opioid/benzodiazepines, rule out misuse and abuse of substances Opioid use disorder Medication Change: Yes (trazodone increased, ativan changed to valium) Medical Record Reviewed: Yes Mental Status Examination - Cognitive Function Orientation: Person, Place, Situation, Time Memory: Intact Attention: Poor (Some improvement) Concentration: Poor (Some improvement) Association: WNL Fund of Knowledge: WNL - Mood Mood: Depressed ("I feel better"), Anxious - Affect Affect: Constricted (Less irritable) - Speech Speech: Appropriate (But overproductive) - Formal Thought Process Formal Thought Process: No Impairment - Suicidal Ideation Suicidal Ideation: No - Homicidal Ideation Homicidal Ideation: No Goal/Treatment Plan - Goal/Treatment Plan Need for Continued Stay: Remain at risks for inpatient hospitalization, Severe depression anxiety, Discharge may exacerbated symptoms, Severe functional impairment Progress Toward Problem(s) and Goals/Treatment Plan: * c/w current tx and plan * No new weekend lab results noted thus far * Vitals reviewed and noted below: Selected Entries 03/16/19 03/16/19 03/16/19 06:54 09:26 16:30 Temperature 97.5 F L Pulse Rate 91 H 78 Respiratory 16 Rate Blood Pressure 137/93 H 137/93 H 129/76 Estimated Date of D/C: 03/20/19
[2019-03-17] MEDS: Albuterol HFA 90 mcg/actuation (8 g) IH SCH (21:45)
--- NOTE | 2019-03-18 01:15 | PN ---
DATE: 03/17/2019 PULMONARY PROGRESS NOTE REFERRING PHYSICIAN: Mary Lou Bauer MD SUBJECTIVE: She is lying in the bed. Night was unremarkable. Feels better. Still gets short of breath, requiring rescue inhaler. No nausea, vomiting, diarrhea, leg pain or leg swelling. OBJECTIVE: GENERAL: No acute distress. VITAL SIGNS: Temperature is 98, heart rate is 78, respiratory rate is 20, blood pressure is 129/76. HEENT: Moist mucous membrane. Crowded airway. NECK: Supple. No JVD. LUNGS: Fair airflow with few rhonchi. HEART: S1 and S2. ABDOMEN: Soft, nontender. No organomegaly. EXTREMITIES: No edema. NEUROLOGIC: Awake and alert. Follows simple commands. MEDICATIONS: She is on Abilify 5 mg daily, Ambien 10 mg at bedtime, lorazepam 2 mg on a p.r.n. basis, trazodone 100 mg at bedtime, Geodon 20 mg every 6 hours p.r.n., Lipitor 20 mg daily, milk of magnesia daily, Nicoderm patch daily, Norvasc 5 mg daily, Pepcid 20 mg at bedtime, Tylenol p.r.n., Valium 10 mg at bedtime p.r.n., Ventolin HFA every 4 hours p.r.n. and every 8 hours [id number], Wellbutrin XL 300 mg daily. LABORATORY DATA: Reviewed. No new lab is available since yesterday. IMPRESSION AND PLAN: Bipolar disorder with major depression, chronic obstructive lung disease, attention deficit hyperactivity disorder, substance abuse, suspected sleep apnea syndrome. From pulmonary point of view, may need to add a combination inhaler. Continue Ventolin as a rescue inhaler. Sleep apnea precaution, careful with sedation. Psychiatry will follow up. Thank you and we will follow with you. Gilberto Del Rio MD
[2019-03-18] MEDS: Albuterol HFA 90 mcg/actuation (8 g) IH SCH (06:20)
[2019-03-18] MEDS: Fluticasone-Salmeterol 500-50mcg Diskus INH SCH ×2 (06:59→17:42)
[2019-03-18] MEDS: buPROPion 150 mg/24 Hours XL Tab PO SCH (08:24)
--- NOTE | 2019-03-18 09:29 | PCM.PYCHPN ---
Psychiatric Progress Note - Psychiatric Progress Note Patient seen today, length of contact: 30min Problems Identified/Issues Discussed: I reviewed assessment and recent notes. Patient was interviewed in the plaza and at bedside. She remains alert and well-oriented to circumstances. Grooming is a little unkempt and affect is emotional. She continues to complain about not receiving adderall on the unit and feels mood is much worse because of it. Admits to receiving adderall from her mother on the unit yesterday and reports she was "desperate". I question her judgement since I informed her that we would permit mother to bring a supply for her so that doses can be monitored. Patient is a little difficult to reassure and she is willful however she is more open to this suggestion today. She continues to deny s/e from her current medication regimen at this time, denies new discomfort or pain. Patient will not retract her 48 hour notice at this time, she wants to see how she feels. Patient continues to be demanding, petulant and devaluing of staff rules on the unit. However she is not suicidal or psychotic and doesn't present as a danger to herself. Diagnostic Results: History of bipolar disorder Questionable ADHD Rule out substance-induced mood disorder Urine drug screen was positive for cannabis/opioid/benzodiazepines, rule out misuse and abuse of substances Opioid use disorder Medication Change: Yes (trazodone increased, ativan changed to valium) Medical Record Reviewed: Yes Mental Status Examination - Cognitive Function Orientation: Person, Place, Situation Memory: Intact Attention: WNL Concentration: WNL Association: WNL Fund of Knowledge: WN Decription of patient's judgement and insights: improved and fair insight and judgment - Mood Mood: Neutral - Affect Affect: Broad, Other (emotional) - Speech Speech: Appropriate - Formal Thought Process Formal Thought Process: No Impairment Psychotic Thoughts and Behaviors: Patient denied perceptual disturbance including hallucinations or paranoia. Delusions were not elicited on day of discharge. - Suicidal Ideation Suicidal Ideation: No - Homicidal Ideation Homicidal Ideation: No Goal/Treatment Plan - Goal/Treatment Plan Need for Continued Stay: Remain at risks for inpatient hospitalization, Severe depression anxiety, Discharge may exacerbated symptoms, Severe functional impairment Progress Toward Problem(s) and Goals/Treatment Plan: * c/w current tx and plan * Staff informed that patient may take adderall provided by her mother on the unit. Visitor restriction x24 hours remains in place. * Pt sign 48 hrs notice at 3.30pm on 03/17/19. Screening is not considered necessary if patient doesn't retract notice. * No new weekend lab results noted * Vitals reviewed and noted below: Selected Entries 03/16/19 03/16/19 03/16/19 06:54 09:26 16:30 Temperature 97.5 F L Pulse Rate 91 H 78 Respiratory 16 Rate Blood Pressure 137/93 H 137/93 H 129/76 03/17/19 03/18/19 16:13 07:00 Temperature 97.8 F Pulse Rate 121 H 89 Respiratory 16 Rate Blood Pressure 167/90 H 134/92 H Estimated Date of D/C: 03/20/19
[2019-03-18] MEDS: ADDERAL 30 MG PO SCH (15:03)
--- NOTE | 2019-03-18 18:54 | PN ---
DATE: 03/18/2019 SUBJECTIVE: I saw her in her room in the psychiatric floor. She is very preoccupied with being back on medicines for ADHD. She likes the stimulation medications. I do not think she needs it. I will let Psychiatry handle that. I am worried about her blood pressure. She still is adding salt to all her meals and on Abilify, fluticasone, Ambien, Ativan, Desyrel, Geodon, Lipitor, Nicoderm, Norvasc we increased it to 10 mg today, Pepcid, Tylenol, Valium, Ventolin and Wellbutrin. PHYSICAL EXAMINATION: VITAL SIGNS: She has a 97.8 temp, 89 pulse, 134/92 blood pressure I bumped up her Norvasc from 5 mg to 10 mg and 16 respiratory rate. HEENT: Head is atraumatic and normocephalic. HEART: Regular rate. LUNGS: Decreased breath sounds. ABDOMEN: Soft and obese. EXTREMITIES: No edema. ASSESSMENT AND PLAN: I am really hoping that she will stop adding salt to her food, I will change her diet around to see if I can have some control over a low salt diet more than I do now. I am running a lab for tomorrow and increased her hypertensive medications to 10 mg of Norvasc and she is definitely pretty fixed on her medicines for ADHD and she wants the stimulation I believe as per Psychiatry. We will follow. Charles Snell DO
--- NOTE | 2019-03-18 21:53 | PN ---
DATE: 03/18/2019 REFERRING PHYSICIAN: Mary Lou Bauer MD SUBJECTIVE: The patient is in the hallway. Night was unremarkable. Slept better. Breathing is better. Started on Advair yesterday. No nausea, vomiting or diarrhea. No leg pain or leg swelling. OBJECTIVE: GENERAL: No acute distress. VITAL SIGNS: Temperature is 98, heart rate is 89, respiratory rate is 16, blood pressure 135/92. HEENT: Moist mucous membrane. No ulcer or thrush noted. NECK: Supple. No JVD. LUNGS: Have fair airflow. HEART: S1 and S2. ABDOMEN: Soft, nontender. No organomegaly. EXTREMITIES: No edema. NEUROLOGIC: Awake, alert. Follows simple commands. MEDICATIONS: She is on Abilify 5 mg daily, Advair 500/50 one puff twice a day, Ambien 10 mg at bedtime p.r.n., Ativan 2 mg every 6 hours p.r.n., trazodone 100 mg at bedtime, Geodon 20 mg every 6 hours, Lipitor 20 mg daily, Nicoderm patch daily, Norvasc 10 mg daily, Pepcid 20 mg daily, Tylenol p.r.n. basis, Valium 10 mg twice a day, Ventolin HFA p.r.n. and [id number], Wellbutrin 300 mg daily. LABORATORY DATA: Reviewed. No new lab is available since yesterday. IMPRESSION AND PLAN: Bipolar disorder with major depression, chronic obstructive lung disease, attention deficit hyperactivity disorder, history of substance abuse, suspected sleep apnea syndrome. Pulmonary point of view, doing pretty good. We will continue Advair one puff twice a day, just to make sure the patient is advised to call me in my office after Advair. Ventolin, keep as rescue inhaler as needed basis. Sleep apnea precaution. Careful with sedation. Continue therapy. Thank you and we will follow with you. Gilberto Del Rio MD
[2019-03-19] MEDS: Fluticasone-Salmeterol 500-50mcg Diskus INH SCH ×2 (05:31→17:22)
[2019-03-19 07:58] LABS: HEMOGLOBIN 12.8 g/dL (12.0-16.0); MEAN CELL VOLUME 84.7 fl (80.0-105.0); MEAN CORPUSCULAR HEMOGLOBIN 27.6 pg (25.0-35.0); MEAN CORPUSCULAR HGB CONC 32.7 g/dl (31.0-37.0); RBC 4.63 10^6/uL (3.5-6.1)
[2019-03-19 08:10] LABS: ALB/GLOB RATIO 1.4 (1.1-1.8); ALBUMIN 4.4 g/dL (3.0-4.8); ALT/SGPT 19 U/L (7-56); AST/SGOT 27 U/L (14-36); BLOOD UREA NITROGEN 12 mg/dL (7-21); CALCIUM 9.2 mg/dL (8.4-10.5); GFR NON-AFRICAN AMERICAN > 60
[2019-03-19] MEDS: buPROPion 150 mg/24 Hours XL Tab PO SCH (08:24)
--- NOTE | 2019-03-19 08:31 | PN ---
DATE: 03/17/2019 SUBJECTIVE: I saw her in the psychiatric floor. She is very upset that she is not getting any medications for her ADHD that she tells me she has and that is why the blood pressure is up and she is very upset about it. She went on and on about medications for her ADHD, the stimulants, which I am not a big fan of. MEDICATIONS: She is on Abilify, Ambien, Ativan, Desyrel, Geodon, Lipitor, Maalox, milk of magnesia, Nicoderm, Norvasc, Pepcid, Tylenol, valium, Ventolin, and Wellbutrin. PHYSICAL EXAMINATION: VITAL SIGNS: She has a 97.5 temp, 91 pulse, blood pressure has been up and down 127/84, 137/93, it is now down to 129/76, and 16 respiratory rate. She is on amlodipine 5 mg now. I was going to bump it up to 10, but the blood pressure came down to 129/76, we will keep an eye on it. HEENT: Head is atraumatic, normocephalic. HEART: Regular rate. LUNGS: Decreased breath sounds. ABDOMEN: Soft, obese. EXTREMITIES: No edema. ASSESSMENT AND PLAN: I think the big part of her blood pressure is how much salt she puts on her food. I discussed that with her again and she says "I like salt and I am going to eat salt." So I am not sure what to do about that. Also discussed her high cholesterol with her and she has to start making better choices in her diet. She did not like hearing that either, but I let her know what good foods to eat and what are bad foods to eat as far as cholesterol and hypertension. Also I am not going to increase the amlodipine to 10 until her blood pressure is high one more time and medications for attention deficit hyperactivity disorder will be by the psychiatrist. Charles Snell DO
[2019-03-19] MEDS: ADDERAL 30 MG PO SCH ×2 (08:32→16:06)
--- NOTE | 2019-03-19 11:57 | PN ---
DATE: 03/19/2019 SUBJECTIVE: I saw her in the psychiatric floor. She again starts off with the same thing about needing her medicine for ADHD. Otherwise, she is doing okay. MEDICATIONS: She is on Abilify, Advair, Ambien, Ativan, Desyrel, Geodon, Lipitor, Maalox, milk of magnesia, Nicoderm, Norvasc up to 10 mg, Pepcid, Tylenol, Valium, Ventolin, and Wellbutrin. She told me she is trying to avoid salt. PHYSICAL EXAMINATION: VITAL SIGNS: Her blood pressure is better today. 97.5 temperature, 109 pulse, 129/89 blood pressure, it was 135/82, so it is was better than the other day, 19 respiratory rate. HEAD: Atraumatic, normocephalic. HEART: Regular rate. LUNGS: Clear to auscultation. ABDOMEN: Soft, obese. EXTREMITIES: No edema. LABORATORY DATA: She had 6 white count, 12.8 hemoglobin, and 213 platelets yesterday. Sodium 139, potassium 3.8, BUN 12, creatinine 0.9, GFR is greater than 60, sugar is 98, calcium is 9.2. Total bili is 0.3, AST is 27, ALT is 19, alk phos 59, total protein 7.4 yesterday. TSH is good at 2.02. ASSESSMENT AND PLAN: As per Psychiatry, I encouraged her to continue with her psychiatric meds and her groups. She has bipolar, major depression, chronic obstructive lung disease, attention deficit hyperactivity disorder. We will continue with aggressive treatment and care, as per Psychiatry. I do think she is improving mentally a little bit. Blood pressure is getting a little bit more stable. No salt. We will follow. Charles Snell DO
--- NOTE | 2019-03-19 14:34 | PN ---
DATE: 03/19/2019 PULMONARY PROGRESS NOTE REFERRING PHYSICIAN: Mary Lou Bauer MD SUBJECTIVE: The patient seen in dayroom, no acute distress. No overnight events reported. Reports feeling well today. Has occasional cough, improved. No headache, rhinitis, shortness of breath, chest pain, abdominal pain, nausea, vomiting, diarrhea, leg pain or leg swelling reported. OBJECTIVE: VITAL SIGNS: Blood pressure 129/89, pulse 109, temperature 97.5. GENERAL: No acute distress. HEENT: Moist mucous membranes. NECK: Supple. No JVD. LUNGS: Clear airflow bilaterally. CARDIOVASCULAR: S1 and S2. ABDOMEN: Soft, nontender. No distention. No organomegaly. EXTREMITIES: No bilateral lower extremity edema. NEUROLOGIC: Awake, alert, verbal, following commands. MEDICATIONS: Reviewed. Tylenol 650 every 6 hours p.r.n. fever greater than 100.4, Maalox 30 mL p.o. daily p.r.n., Ventolin HFA 2 puffs inhalation every 4 hours p.r.n., Norvasc 10 mg daily, Abilify 5 mg twice a day, Lipitor 20 mg dinner, Wellbutrin 300 mg daily, Pepcid 20 mg at bedtime, Vistaril 50 mg every 8 hours p.r.n., Ativan 2 mg IM every 6 hours p.r.n., Ativan 2 mg p.o. every 6 hours p.r.n., milk of magnesia 30 mL p.o. daily p.r.n., nicotine patch transdermal daily, Advair Diskus 500/50 one puff inhalation every 12 hours, trazodone 100 mg at bedtime, Geodon 20 mg p.o. every 6 hours p.r.n., Geodon injection 20 mg IM every 6 hours p.r.n., and Ambien 10 mg at bedtime. LABORATORY DATA: Reviewed. WBC 6, RBC 4.6, hemoglobin 12.8, hematocrit 39.2, and platelets 213. Sodium 139, potassium 3.8, chloride 105, carbon dioxide 25, anion gap 12, BUN 12, creatinine 0.9, GFR greater than 60, random glucose 98, calcium 9.2, total bilirubin 0.3, AST 27, ALT 19, alkaline phosphatase 59, total protein 7.4, albumin 4.4, globulin 3, and albumin-globulin ratio 1.4. IMPRESSION AND PLAN: Bipolar disorder, major depression, chronic obstructive lung disease, attention deficit hyperactivity disorder, history of substance abuse, and obstructive sleep apnea syndrome. Pulmonary point of view, continue Advair one puff twice a day. Continue Ventolin rescue inhaler as needed basis. Sleep apnea precaution, head of bed elevated at 45 degrees, careful with sedation. Recommend the patient have sleep study as outpatient. Recommend the patient have pulmonary function tests to evaluate the extent of chronic lung disease. The patient was seen and examined with Dr. Del Rio. Discussed assessment and plan as described above. The patient was seen and examined with Yeni Rojo, nurse practitioner. Discussed assessment and plan as described above. Thank you for this consult. We will follow with you. Yeni Rojo APN Gilberto Del Rio MD [facility]
--- NOTE | 2019-03-19 15:59 | PCM.PYCHPN ---
Psychiatric Progress Note - Psychiatric Progress Note Patient seen today, length of contact: 30min Patient Chief Complaint: "Sorry to admit that I was taking adderral for the last week, my mom brought it to me, I was taking 30mg..." Problems Identified/Issues Discussed: Risk, benefits, alternatives of the medications, substance abuse/addiction, treatment options, inpatient rehab referral. Medical Problems: See HPI Diagnostic Results: Lab Results 03/13/19 07:40: RPR Nonreactive 03/13/19 07:40: TSH 3rd Generation 2.02 03/13/19 07:40: Fasting Glucose 104, Triglycerides 123, Cholesterol 244 H, LDL Cholesterol Direct 156 H, HDL Cholesterol 59 Vital Signs Temp Pulse Resp BP Pulse Ox 03/14/19 13:34 132/87 03/14/19 07:15 98.4 F 82 20 132/87 03/13/19 16:00 71 131/88 03/13/19 06:32 97.5 F L 59 L 18 134/91 H 03/12/19 22:51 98.5 F 82 18 135/93 H 99 03/12/19 19:52 97.8 F 84 16 136/93 H 100 03/19/19 07:30 03/19/19 07:30 Lab Results 03/19/19 07:30: Sodium 139, Potassium 3.8, Chloride 105, Carbon Dioxide 25, Anio n Gap 12, BUN 12, Creatinine 0.9, Est GFR ( Amer) > 60, Est GFR (Non-Af Amer) > 60, Random Glucose 98, Calcium 9.2, Total Bilirubin 0.3, AST 27, ALT 19, Alkaline Phosphatase 59, Total Protein 7.4, Albumin 4.4, Globulin 3.0, Albumin/Globulin Ratio 1.4 03/19/19 07:30: WBC 6.0, RBC 4.63, Hgb 12.8, Hct 39.2, MCV 84.7, MCH 27.6, MCHC 32.7, RDW 14.0, Plt Count 213, MPV 13.0 H 03/15/19 08:00: Sodium 142, Potassium 4.1, Chloride 106, Carbon Dioxide 24, Anion Gap 16, BUN 17, Creatinine 0.9, Est GFR ( Amer) > 60, Est GFR (Non- Af Amer) > 60, Random Glucose 99, Calcium 9.5, Total Bilirubin 0.4, AST 16, ALT 15, Alkaline Phosphatase 64, Total Protein 7.9, Albumin 4.5, Globulin 3.4, Albumin/Globulin Ratio 1.3 03/15/19 08:00: WBC 7.1, RBC 4.87, Hgb 13.6, Hct 40.7, MCV 83.6, MCH 27.9, MCHC 33.4, RDW 14.0, Plt Count 227, MPV 13.0 H 03/13/19 07:40: RPR Nonreactive 03/13/19 07:40: TSH 3rd Generation 2.02 03/13/19 07:40: Fasting Glucose 104, Triglycerides 123, Cholesterol 244 H, LDL Cholesterol Direct 156 H, HDL Cholesterol 59 DSM 5 Symptoms Update: Shortly, Alex Raman is a 29 year old female, with a history of depression, anxiety, and ADHD, denied previous psychiatric admissions, denied previous suicidal attempts, patient initially presented at [facility] with her mother, complaining of worsening depression, inability to function, suicidal ideation, patient required further hospitalization starvation/medication adjustment and acute psychiatric inpatient unit, transfer was uneventful. Patient was seen and examined today the treatment team meeting room, patient presented to be emotional crying nonstop, as per reported patient's mother was observed brining adderal to the pt and giving it to her during visiting hours, pt was redirected, pt reluctantly gave adderal to staff, resume this medication 30mg bid, pt's klonopin was d/c, pt was started on Valium. pt presented to be emotionally labile, pt was asking for adderal "which was officially prescribed to me for the past 7years", no reasoning. pt seems to be more fixated on adderal than on her depression? no visitations allowed so far, pt's mother is attending family meeting tomorrow. Klonopin will be resumed as needed, valium discontinued because patient has history of addiction., As per nursing report patient wants to have "stronger medications" and is constant redirections, right now patient is keep asking for IM of Ativan because "it made me feel good" patient obviously has addiction to Adderall/benzodiazepines. So far patient tolerates medications well, no side effects observed or reported, aims 0, no EPS. Impression: DSM 5 Diagnosis: History of bipolar disorder Questionable ADHD Rule out substance-induced mood disorder Urine drug screen was positive for cannabis/opioid/benzodiazepines, rule out misuse and abuse of substances Opioid use disorder Medication Change: Yes (Valium discontinued, seroquel started, abilify d/c) Medical Record Reviewed: Yes Consults ordered or reviewed: Medical consult and pulmonology consult requested Mental Status Examination - Cognitive Function Orientation: Person, Place, Situation Memory: Intact Attention: WNL Concentration: WNL Association: WNL Fund of Knowledge: WNL - Mood Mood: Depressed, Anxious - Affect Affect: Constricted (And tearful), Other (emotional) - Speech Speech: Appropriate - Formal Thought Process Formal Thought Process: No Impairment - Suicidal Ideation Suicidal Ideation: No - Homicidal Ideation Homicidal Ideation: No Goal/Treatment Plan - Goal/Treatment Plan Need for Continued Stay: Remain at risks for inpatient hospitalization, Severe depression anxiety, Discharge may exacerbated symptoms, Severe functional impairment Progress Toward Problem(s) and Goals/Treatment Plan: Milieu/structure/supportive therapy SW consultation for discharge plan and social issues Med management Abilify discontinued Seroquel 50 mg twice a day and 100 mg at the nighttime for mood stabilization Wellbutrin XL 300mg a day for depression and ADHD Klonopin 1 mg twice daily and at bedtime for anxiety resumed Ambien 10 mg as needed for insomnia Trazodone 100 mg at nighttime for depression and insomnia We will not resume stimulants as of now,possible resumption with the plan to wean off Family involvement Family involvement Follow up on labs Will monitor closely Pt was educated about risk/benefits and alternatives of medications, coping strategies (safety plan, suicide prevention), relapse prevention, importance of follow up with psychiatrist and therapist, stay away from drugs/alcohol/smoking Family meeting was scheduled for tomorrow Estimated Date of D/C: 03/20/19
[2019-03-20] MEDS: ADDERAL 30 MG PO SCH ×2 (08:16→16:06)
[2019-03-20] MEDS: buPROPion 150 mg/24 Hours XL Tab PO SCH (08:16)
[2019-03-20] MEDS: Fluticasone-Salmeterol 500-50mcg Diskus INH SCH ×2 (10:21→18:39)
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
--- NOTE | 2019-03-20 13:00 | PN ---
DATE: 03/20/2019 PULMONARY PROGRESS NOTE REFERRING PHYSICIAN: Mary Lou Bauer MD SUBJECTIVE: The patient seen in dayroom, no acute distress. No overnight events reported. No headache, rhinitis, cough, shortness of breath, chest pain, abdominal pain, nausea, vomiting, diarrhea, leg pain or leg swelling reported. OBJECTIVE: VITAL SIGNS: Blood pressure 118/71, pulse 74, temperature 98.4. GENERAL: No acute distress. HEENT: Moist mucous membranes. NECK: Supple. No JVD. LUNGS: Clear airflow bilaterally. CARDIOVASCULAR: S1 and S2. ABDOMEN: Soft, nontender. No distention. No organomegaly. EXTREMITIES: No bilateral lower extremity edema. NEUROLOGIC: Awake, alert, verbal, following commands. MEDICATIONS: Reviewed. Tylenol 650 every 6 hours p.r.n. fever greater than 100.4, Maalox 30 mL p.o. daily p.r.n., Ventolin HFA 2 puffs inhalation every 4 hours p.r.n., Norvasc 10 mg daily, Lipitor 20 mg dinner, Wellbutrin 300 mg daily, Pepcid 20 mg at bedtime, Vistaril 50 mg every 8 hours p.r.n., Ativan 2 mg IM every 6 hours p.r.n., Ativan 2 mg p.o. every 6 hours p.r.n., Ativan 2 mg p.o. twice a day, Ativan 2 mg p.o. at bedtime, milk of magnesia 30 mL p.o. daily p.r.n., nicotine patch transdermal daily, Advair Diskus 1 puff inhalation every 12 hours, Geodon 20 mg p.o. every 6 hours p.r.n., Geodon injection 20 mg IM every 6 hours p.r.n., Geodon 20 mg p.o. twice a day, Geodon 20 mg p.o. at bedtime, and Ambien 10 mg p.o. at bedtime. LABORATORY DATA: Reviewed. No new labs. IMPRESSION AND PLAN: Bipolar, major depression, chronic obstructive lung disease, attention deficit hyperactivity disorder, history of substance abuse, and obstructive sleep apnea syndrome. Pulmonary point of view, continue inhalers, Advair, and Ventolin. Sleep apnea precaution, head of bed elevated at 45 degrees, careful with sedation. Recommend the patient to have full pulmonary function tests to evaluate the extent of chronic lung disease as outpatient. Recommend the patient to have sleep study as outpatient to evaluate for sleep apnea. Recommend weight loss. Continue smoking cessation. The patient was seen and examined with Dr. Del Rio. Discussed assessment and plan as described above. The patient was seen and examined with Yeni Rojo, nurse practitioner. Discussed assessment and plan as described above. Thank you for this consult. We will follow with you. Yeni Rojo APN Gilberto Del Rio MD MTDEmelia
--- NOTE | 2019-03-20 14:38 | PCM.PYCHPN ---
Psychiatric Progress Note - Psychiatric Progress Note Patient seen today, length of contact: 30min Patient Chief Complaint: "I know I have ADHD....., I need to be on adderal and vyvinse" Problems Identified/Issues Discussed: Risk, benefits, alternatives of the medications, substance abuse/addiction, treatment options, inpatient rehab referral. Medical Problems: See HPI Diagnostic Results: Lab Results 03/13/19 07:40: RPR Nonreactive 03/13/19 07:40: TSH 3rd Generation 2.02 03/13/19 07:40: Fasting Glucose 104, Triglycerides 123, Cholesterol 244 H, LDL Cholesterol Direct 156 H, HDL Cholesterol 59 Vital Signs Temp Pulse Resp BP Pulse Ox 03/14/19 13:34 132/87 03/14/19 07:15 98.4 F 82 20 132/87 03/13/19 16:00 71 131/88 03/13/19 06:32 97.5 F L 59 L 18 134/91 H 03/12/19 22:51 98.5 F 82 18 135/93 H 99 03/12/19 19:52 97.8 F 84 16 136/93 H 100 03/19/19 07:30 03/19/19 07:30 Lab Results 03/19/19 07:30: Sodium 139, Potassium 3.8, Chloride 105, Carbon Dioxide 25, Anion Gap 12, BUN 12, Creatinine 0.9, Est GFR ( Amer) > 60, Est GFR (Non- Af Amer) > 60, Random Glucose 98, Calcium 9.2, Total Bilirubin 0.3, AST 27, ALT 19, Alkaline Phosphatase 59, Total Protein 7.4, Albumin 4.4, Globulin 3.0, Albumin/Globulin Ratio 1.4 03/19/19 07:30: WBC 6.0, RBC 4.63, Hgb 12.8, Hct 39.2, MCV 84.7, MCH 27.6, MCHC 32.7, RDW 14.0, Plt Count 213, MPV 13.0 H 03/15/19 08:00: Sodium 142, Potassium 4.1, Chloride 106, Carbon Dioxide 24, Anion Gap 16, BUN 17, Creatinine 0.9, Est GFR ( Amer) > 60, Est GFR (Non- Af Amer) > 60, Random Glucose 99, Calcium 9.5, Total Bilirubin 0.4, AST 16, ALT 15, Alkaline Phosphatase 64, Total Protein 7.9, Albumin 4.5, Globulin 3.4, Album in/Globulin Ratio 1.3 03/15/19 08:00: WBC 7.1, RBC 4.87, Hgb 13.6, Hct 40.7, MCV 83.6, MCH 27.9, MCHC 33.4, RDW 14.0, Plt Count 227, MPV 13.0 H 03/13/19 07:40: RPR Nonreactive 03/13/19 07:40: TSH 3rd Generation 2.02 03/13/19 07:40: Fasting Glucose 104, Triglycerides 123, Cholesterol 244 H, LDL Cholesterol Direct 156 H, HDL Cholesterol 59 DSM 5 Symptoms Update: Shortly, Alex Raman is a 29 year old female, with a history of depression, anxiety, and ADHD, denied previous psychiatric admissions, denied previous suicidal attempts, patient initially presented at [facility] with her mother, complaining of worsening depression, inability to function, suicidal ideation, patient required further hospitalization starvation/medication adjustment and acute psychiatric inpatient unit, transfer was uneventful. Patient was seen and examined today the treatment team meeting room for a family meeting with pt's mother, participants: patient herself, patient's mother, SW and this blurb writer. pt's mother reported that pt was graduated from high school and never failed any classes. pt had higher than average grades. pt never seen psychiatrist in her childhood because pt's father "did not believe in mental illness." pt never had neuropsychological testing done. pt was prescribed percocet at age of 20 for back pain and since that time pt started to experience addiction to the pain meds pt was diagnosed with Lyme's disease and legionnaire disease and had 8 episodes of pneumonia at age of 22. pt gained aproximately 20Lb within 2 weeks due to prednisone. pt was diagnosed with ADHD at age of 23 by her psychiatrist, "he tested me with some paper based test.", pt then was referred to PMD with advise to continue adderal. pt said that adderal "was uneffective and she was prescribed Vyvance 70mg in addition to adderal 30mg. pt had difficulties to understand what is her role here in psych unit, pt was fixated on her dx of ?ADHD, but pt said that she was doing better from the depressive standpoint. pt is aware that this blurb writer will not give two stimulants at the same time, pt was started on adderal by psychiatrist, but was "referred to my PMD with advise to continue it", PMD was giving adderal and vyvance. as per RN report pt is inpatient, needs to have instant gratification, at the same time no agitation and no aggression. pt was asking for IM of ativan "it acts faster, I was able to sleep faster, this blurb writer refused. Patient was advised to be referred to neuropsychological testing, patient agreed. In regards of motherdaughter relationship, mother seems to be enabling, supporting pt's preferences to be on two ADHD medications. So far patient tolerates medications well, no side effects observed or reported, aims 0, no EPS. Impression: DSM 5 Diagnosis: History of bipolar disorder Questionable ADHD Rule out substance-induced mood disorder Urine drug screen was positive for cannabis/opioid/benzodiazepines, rule out misuse and abuse of substances Opioid use disorder Medication Change: Yes (Valium discontinued, seroquel d/c, geodon started, klonopin d/c, ativan sta) Medical Record Reviewed: Yes Mental Status Examination - Cognitive Function Orientation: Person, Place, Situation Memory: Intact Attention: WNL Concentration: WNL Association: WNL Fund of Knowledge: WNL - Mood Mood: Depressed, Anxious - Affect Affect: Constricted (And tearful), Other (emotional) - Speech Speech: Appropriate - Formal Thought Process Formal Thought Process: No Impairment - Suicidal Ideation Suicidal Ideation: No - Homicidal Ideation Homicidal Ideation: No Goal/Treatment Plan - Goal/Treatment Plan Need for Continued Stay: Remain at risks for inpatient hospitalization, Severe depression anxiety, Discharge may exacerbated symptoms, Severe functional impairment Progress Toward Problem(s) and Goals/Treatment Plan: Milieu/structure/supportive therapy SW consultation for discharge plan and social issues Med management Abilify discontinued Seroquel discontinued because history of gaining weight Wellbutrin XL 300mg a day for depression and ADHD Klonopin discontinued Ativan 2 mg 3 times a day for anxiety Ambien 10 mg as needed for insomnia Trazodone is continued Stimulants started over the weekend, will continue adderal ONLY geodon 20mg bid and hs for mood stabilziation Family involvement Follow up on labs Will monitor closely Pt was educated about risk/benefits and alternatives of medications, coping strategies (safety plan, suicide prevention), relapse prevention, importance of follow up with psychiatrist and therapist, stay away from drugs/alcohol/smoking Family meeting took place today 03/20/19 Estimated Date of D/C: 03/22/19
[2019-03-21] MEDS: Fluticasone-Salmeterol 500-50mcg Diskus INH SCH ×2 (06:08→17:33)
[2019-03-21] MEDS: ADDERAL 30 MG PO SCH ×2 (08:11→16:05)
[2019-03-21] MEDS: buPROPion 150 mg/24 Hours XL Tab PO SCH (08:15)
--- NOTE | 2019-03-21 12:22 | PN ---
DATE: 03/21/2019 SUBJECTIVE: I saw her this morning in the psychiatric floor. She is very upset with me. I have put her on a heart healthy, low-sodium diet. She has been having hypertensive issues here and hoping to have a loose some weight without eating junk food and she got very mad at me. She wants to go back to regular diet. I will not argue with her. MEDICATIONS: She is on Advair, Ambien, Ativan, Geodon, Lipitor, a home med which is probably Adderall, Maalox, milk of magnesia, Nicoderm, Norvasc, Pepcid, Tylenol, albuterol, Vistaril, Wellbutrin. PHYSICAL EXAMINATION: VITAL SIGNS: She has 97.1 temperature, 76 pulse, 121/88 blood pressure, 20 respiratory rate. HEENT: Head is atraumatic, normocephalic. HEART: Regular rate. LUNGS: Clear to auscultation. ABDOMEN: Soft, obese. EXTREMITIES: No edema. She is not really that compliant medically. She wants to do whatever she wants, I tried and discuss, no salt, decrease the carbohydrates. We also discussed no smoking, no drinking, no drugs she leaves here. Hopefully, she will listen she might be leaving in the next 24-48 hours. She tells me and hopefully she will do well. The patient had depression, asthma, attention deficit hyperactivity disorder, bipolar, hypertension, high cholesterol, and suicidal ideation. Charles Snell DO MTDD
--- NOTE | 2019-03-21 15:57 | PCM.PYCHPN ---
Psychiatric Progress Note - Psychiatric Progress Note Patient seen today, length of contact: 30min Patient Chief Complaint: "I want to start swimming again..' Problems Identified/Issues Discussed: Risk, benefits, alternatives of the medications, substance abuse/addiction, treatment options, inpatient rehab referral. Medical Problems: See HPI Diagnostic Results: Lab Results 03/13/19 07:40: RPR Nonreactive 03/13/19 07:40: TSH 3rd Generation 2.02 03/13/19 07:40: Fasting Glucose 104, Triglycerides 123, Cholesterol 244 H, LDL Cholesterol Direct 156 H, HDL Cholesterol 59 Vital Signs Temp Pulse Resp BP Pulse Ox 03/14/19 13:34 132/87 03/14/19 07:15 98.4 F 82 20 132/87 03/13/19 16:00 71 131/88 03/13/19 06:32 97.5 F L 59 L 18 134/91 H 03/12/19 22:51 98.5 F 82 18 135/93 H 99 03/12/19 19:52 97.8 F 84 16 136/93 H 100 03/19/19 07:30 03/19/19 07:30 Lab Results 03/19/19 07:30: Sodium 139, Potassium 3.8, Chloride 105, Carbon Dioxide 25, Anion Gap 12, BUN 12, Creatinine 0.9, Est GFR ( Amer) > 60, Est GFR (Non- Af Amer) > 60, Random Glucose 98, Calcium 9.2, Total Bilirubin 0.3, AST 27, ALT 19, Alkaline Phosphatase 59, Total Protein 7.4, Albumin 4.4, Globulin 3.0, Albumin/Globulin Ratio 1.4 03/19/19 07:30: WBC 6.0, RBC 4.63, Hgb 12.8, Hct 39.2, MCV 84.7, MCH 27.6, MCHC 32.7, RDW 14.0, Plt Count 213, MPV 13.0 H 03/15/19 08:00: Sodium 142, Potassium 4.1, Chloride 106, Carbon Dioxide 24, Anion Gap 16, BUN 17, Creatinine 0.9, Est GFR ( Amer) > 60, Est GFR (Non- Af Amer) > 60, Random Glucose 99, Calcium 9.5, Total Bilirubin 0.4, AST 16, ALT 15, Alkaline Phosphatase 64, Total Protein 7.9, Albumin 4.5, Globulin 3.4, Albumin/Globulin Ratio 1.3 03/15/19 08:00: WBC 7.1, RBC 4.87, Hgb 13.6, Hct 40.7, MCV 83.6, MCH 27.9, MCHC 33.4, RDW 14.0, Plt Count 227, MPV 13.0 H 03/13/19 07:40: RPR Nonreactive 03/13/19 07:40: TSH 3rd Generation 2.02 03/13/19 07:40: Fasting Glucose 104, Triglycerides 123, Cholesterol 244 H, LDL Cholesterol Direct 156 H, HDL Cholesterol 59 DSM 5 Symptoms Update: Shortly, Alex Raman is a 29 year old female, with a history of depression, anxiety, and ADHD, denied previous psychiatric admissions, denied previous suicidal attempts, patient initially presented at [facility] with her mother, complaining of worsening depression, inability to function, suicidal ideation, patient required further hospitalization starvation/medication adj ustment and acute psychiatric inpatient unit, transfer was uneventful. Patient was seen today at the treatment team meeting, patient presented to be okay, patient still fixated on medical marijuana as well as stimulants, patient feel hesitant to go to dual diagnosis program because she wants to continue to stimulants as well as medical marijuana. This fiction and nonfiction writer prose advised patient about risk of continued to stimulants as well as medical marijuana patient was minimally receptive. Patient has some future oriented plans to start swimming, eventually start working. Patient deemed tolerating Geodon well and fair sleep no agitation or aggression. So far patient tolerates medications well, no side effects observed or reported, aims 0, no EPS. Impression: DSM 5 Diagnosis: History of bipolar disorder Questionable ADHD Rule out substance-induced mood disorder Urine drug screen was positive for cannabis/opioid/benzodiazepines, rule out misuse and abuse of substances Opioid use disorder Medication Change: No Medical Record Reviewed: Yes Consults ordered or reviewed: Medical consult and pulmonology consult requested Mental Status Examination - Cognitive Function Orientation: Person, Place, Situation Memory: Intact Attention: WNL Concentration: WNL Association: WNL Fund of Knowledge: WNL - Mood Mood: Depressed ("I am doing better"), Anxious - Affect Affect: Constricted (And tearful at times), Other (emotional) - Speech Speech: Appropriate - Formal Thought Process Formal Thought Process: No Impairment - Suicidal Ideation Suicidal Ideation: No - Homicidal Ideation Homicidal Ideation: No Goal/Treatment Plan - Goal/Treatment Plan Need for Continued Stay: Remain at risks for inpatient hospitalization, Severe depression anxiety, Discharge may exacerbated symptoms, Severe functional impairment Progress Toward Problem(s) and Goals/Treatment Plan: Milieu/structure/supportive therapy SW consultation for discharge plan and social issues Med management Abilify discontinued Seroquel discontinued because history of gaining weight Wellbutrin XL 300mg a day for depression and ADHD Klonopin discontinued Ativan 2 mg 3 times a day for anxiety Ambien 10 mg as needed for insomnia Trazodone is continued Stimulants started over the weekend, will continue adderal ONLY geodon 20mg bid and hs for mood stabilziation Family involvement Follow up on labs Will monitor closely Pt was educated about risk/benefits and alternatives of medications, coping strategies (safety plan, suicide prevention), relapse prevention, importance of follow up with psychiatrist and therapist, stay away from drugs/alcohol/smoking Family meeting took place today 03/20/19 Estimated Date of D/C: 03/22/19
--- NOTE | 2019-03-21 17:20 | PN ---
DATE: 03/21/2019 PULMONARY PROGRESS NOTE REFERRING PHYSICIAN: Mary Lou Bauer MD SUBJECTIVE: The patient seen in dayroom. No acute distress. No overnight events reported. Reports feeling well today. No headache, rhinitis, cough, shortness of breath, chest pain, abdominal pain, nausea, vomiting, diarrhea, leg pain or leg swelling. The patient does report feeling nervous about potential discharge tomorrow. OBJECTIVE: VITAL SIGNS: Blood pressure 121/88, pulse 76 and temperature 97.1. GENERAL: No acute distress. HEENT: Moist mucous membranes. NECK: Supple. No JVD. LUNGS: Clear bilaterally. CARDIOVASCULAR: S1 and S2. ABDOMEN: Soft and nontender. No distention. No organomegaly. EXTREMITIES: No bilateral lower extremity edema. NEUROLOGIC: Awake, alert and verbal. Following commands. MEDICATIONS: Reviewed. Tylenol 650 every 6 hours p.r.n. fever greater than 100.4, Maalox 30 mL p.o. daily p.r.n., Ventolin HFA 2 puffs every 4 hours p.r.n., Norvasc 10 mg daily, Lipitor 20 mg at dinner, Wellbutrin 300 mg daily, Pepcid 20 mg at bedtime, Vistaril 50 mg every 8 hours p.r.n., Ativan 2 mg p.o. twice a day, Ativan 2 mg p.o. at bedtime, milk of magnesia 30 mL p.o. daily p.r.n., nicotine patch transdermal daily, Advair Diskus 1 puff inhalation every 12 hours, Geodon tab 20 mg p.o. every 6 hours p.r.n., Geodon 20 mg IM every 6 hours p.r.n., Geodon 20 mg p.o. twice a day, Geodon 20 mg p.o. at bedtime, and Ambien 10 mg at bedtime. LABORATORY DATA: Reviewed. No new labs. IMPRESSION AND PLAN: Bipolar, major depression, chronic obstructive lung disease, attention deficit hyperactivity disorder, history of substance abuse, and suspected obstructive sleep apnea syndrome. Pulmonary point of view, continue Advair inhalers twice a day. Continue Ventolin as needed. Sleep apnea precaution, head of bed elevated at 45 degrees, careful with sedation. Continue smoking cessation. Recommend weight loss for this patient. Recommend the patient to have full pulmonary function tests as outpatient to evaluate the extensive chronic lung disease. Recommend the patient to have sleep study as outpatient to evaluate for sleep apnea syndrome. The patient was seen and examined with Dr. Del Rio. Discussed assessment and plan as described above. The patient was seen and examined with Yeni Rojo, nurse practitioner. Discussed assessment and plan as described above. Thank you for this consult and we will follow with you. Yeni Rojo APN Gilberto Del Rio MD
[2019-03-22 07:25] VITALS: RESP 20; TEMP 97.2
[2019-03-22] MEDS: Fluticasone-Salmeterol 500-50mcg Diskus INH SCH ×2 (07:43→17:02)
[2019-03-22] MEDS: buPROPion 150 mg/24 Hours XL Tab PO SCH (08:47)
[2019-03-22] MEDS: ADDERAL 30 MG PO SCH ×2 (08:50→16:11)
--- NOTE | 2019-03-22 10:15 | PN ---
DATE: 03/22/2019 PULMONARY PROGRESS NOTE REFERRING PHYSICIAN: Mary Lou Bauer MD SUBJECTIVE: The patient seen ambulating in hallway. No acute distress. No overnight events reported. No headache, rhinitis, cough, shortness of breath, chest pain, abdominal pain, nausea, vomiting, diarrhea, leg pain or leg swelling reported. OBJECTIVE: GENERAL: No acute distress. VITAL SIGNS: Blood pressure 110/76, pulse 82 and temperature 97.2. HEENT: Moist mucous membranes. NECK: Supple. No JVD. LUNGS: Clear bilaterally. CARDIOVASCULAR: S1 and S2. ABDOMEN: Soft and nontender. No distention. No organomegaly. EXTREMITIES: No bilateral lower extremity edema. NEUROLOGIC: Awake, alert and verbal. Following commands. MEDICATIONS: Reviewed. Tylenol 650 every 6 hours p.r.n. fever greater than 100.4, Maalox 30 mL p.o. daily p.r.n., Ventolin HFA 2 puffs inhalation every 4 hours p.r.n., Norvasc 10 mg daily, Lipitor 20 mg at dinner, Wellbutrin 300 mg daily, Pepcid 20 mg h.s., Vistaril 50 mg every 8 hours p.r.n., Ativan 2 mg twice a day, Ativan 2 mg h.s., milk of magnesia 30 mL p.o. daily p.r.n., nicotine patch transdermal daily, Advair Diskus inhalation every 12 hours, Geodon 20 mg every 6 hours p.r.n., Geodon 20 mg IM every 6 hours p.r.n., Geodon 20 mg p.o. twice a day, Geodon 20 mg p.o. h.s., and Ambien 10 mg h.s. LABORATORY DATA: Reviewed. No new labs. IMPRESSION AND PLAN: Bipolar, major depression, chronic obstructive lung disease, attention deficit hyperactivity disorder, history of substance abuse, obstructive sleep apnea syndrome. Continue Advair inhaler twice a day. Continue Ventolin as needed, inhaler. Sleep apnea precaution, head of bed elevated at 45 degrees, careful with sedation. Continue smoking cessation. Recommend the patient to have full pulmonary function test as outpatient to evaluate extent of chronic lung disease. Recommend the patient to have sleep study as outpatient to evaluate for sleep apnea syndrome. The patient was seen and examined with Dr. Del Rio. Discussed assessment and plan as described above. The patient was seen and examined with Yeni Rojo, nurse practitioner. Discussed assessment and plan as described above. Thank you for this consult. We will follow with you. Yeni Rojo APN Gilberto Del Rio MD [facility]
--- NOTE | 2019-03-22 13:05 | PN ---
DATE: 03/22/2019 SUBJECTIVE: She tells me she is being discharged today. She does not want to leave. She does not feel like she is ready to leave the psychiatric floor and she is crying. She discussed this with the social work professor that she has go to the outpatient now. MEDICATIONS: She is on Advair, Ambien, Ativan, Geodon, Lipitor, Maalox, milk of magnesia, Nicoderm, Norvasc, Pepcid, Tylenol, Ventolin, Vistaril, and Wellbutrin. PHYSICAL EXAMINATION VITAL SIGNS: She has a 97.2 temperature, 82 pulse, 110/76 blood pressure, 20 respiratory rate. HEENT: Head is normocephalic and normocephalic. HEART: Regular rate. LUNGS: Decreased breath sounds.. ABDOMEN: Soft. Obese. EXTREMITIES: No edema. ASSESSMENT AND PLAN: She does not want to leave. I think she likes the security and also the outpatient. She is currently worried about that but I do agree that she has to leave. She is doing quite well for the past 2 days and I think with the mother's support, I think she will do well. So, her plan I believe from that point is to leave. I encouraged her to do the best she can. Follow up on the outpatient, take the medication. I think she also improved medically with her asthma and hypertension and she will try and watch her low-cholesterol diet. She will eat low salt. Charles Snell DO
[2019-03-22 16:01] VITALS: BP 140/81; PULSE 111
--- NOTE | 2019-03-22 16:49 | PCM.PYCHDC ---
Mental Status Examination - Mental Status Examination Orientation: Person, Place, Situation, Time Memory: Intact Mood: Neutral Affect: Constricted (But reactive, mood congruent) Speech: Appropriate Attention: WNL Concentration: WNL Association: WNL Fund of Knowledge: WNL Formal Thought Process: No Impairment Description of patient's judgement and insight: Patient has very poor insight into her addiction to stimulants, poor insight into history of opioid use disorder, fair insight into her mental illness. Psychotic Thoughts and Behaviors: Patient denied psychotic symptoms, denied hearing voices, denied seeing things, denied paranoid ideations, patient does not present to the psychotic. Suicidal Ideation: No Current Homicidal Ideation?: No Plan: Patient adamantly denied thoughts of harming himself or others, denied intent or plan. Discharge Plan - Discharge Note Reason for Hospitalization: pt was transferred from the [facility] for evaluation of worsening of depression, possible suicidal ideation. Psychiatric History (includes Medical, Family, Personal Hx): See HPI Laboratory Data: 03/19/19 07:30 03/19/19 07:30 Lab Results 03/19/19 07:30: Sodium 139, Potassium 3.8, Chloride 105, Carbon Dioxide 25, Anion Gap 12, BUN 12, Creatinine 0.9, Est GFR ( Amer) > 60, Est GFR (Non- Af Amer) > 60, Random Glucose 98, Calcium 9.2, Total Bilirubin 0.3, AST 27, ALT 19, Alkaline Phosphatase 59, Total Protein 7.4, Albumin 4.4, Globulin 3.0, Albumin/Globulin Ratio 1.4 03/19/19 07:30: WBC 6.0, RBC 4.63, Hgb 12.8, Hct 39.2, MCV 84.7, MCH 27.6, MCHC 32.7, RDW 14.0, Plt Count 213, MPV 13.0 H 03/15/19 08:00: Sodium 142, Potassium 4.1, Chloride 106, Carbon Dioxide 24, Anion Gap 16, BUN 17, Creatinine 0.9, Est GFR ( Amer) > 60, Est GFR (Non- Af Amer) > 60, Random Glucose 99, Calcium 9.5, Total Bilirubin 0.4, AST 16, ALT 15, Alkaline Phosphatase 64, Total Protein 7.9, Albumin 4.5, Globulin 3.4, Albumin/Globulin Ratio 1.3 03/15/19 08:00: WBC 7.1, RBC 4.87, Hgb 13.6, Hct 40.7, MCV 83.6, MCH 27.9, MCHC 33.4, RDW 14.0, Plt Count 227, MPV 13.0 H 03/13/19 07:40: RPR Nonreactive 03/13/19 07:40: TSH 3rd Generation 2.02 03/13/19 07:40: Fasting Glucose 104, Triglycerides 123, Cholesterol 244 H, LDL Cholesterol Direct 156 H, HDL Cholesterol 59 Vital Signs Temp Pulse Resp BP Pulse Ox 03/22/19 16:00 111 H 140/81 03/22/19 08:46 82 110/76 03/22/19 07:24 97.2 F L 82 20 110/76 03/21/19 15:00 98 H 18 145/84 03/21/19 08:15 78 121/88 03/21/19 07:07 97.1 F L 76 20 121/88 03/20/19 16:02 96 H 129/86 03/20/19 08:15 74 118/71 03/20/19 07:20 98.4 F 74 20 118/71 03/19/19 15:46 86 113/73 03/19/19 08:25 109 H 129/89 03/19/19 07:00 97.5 F L 109 H 19 129/89 03/18/19 15:55 91 H 135/82 03/18/19 07:00 97.8 F 89 16 134/92 H 03/17/19 16:13 121 H 167/90 H 03/16/19 16:30 78 129/76 03/16/19 09:26 137/93 H 03/16/19 06:54 97.5 F L 91 H 16 137/93 H 03/15/19 16:00 83 127/84 03/15/19 09:27 135/93 H 03/15/19 07:15 98.0 F 73 20 135/93 H 03/14/19 16:00 66 122/81 03/14/19 13:34 132/87 03/14/19 07:15 98.4 F 82 20 132/87 03/13/19 16:00 71 131/88 03/13/19 06:32 97.5 F L 59 L 18 134/91 H 03/12/19 22:51 98.5 F 82 18 135/93 H 99 03/12/19 19:52 97.8 F 84 16 136/93 H 100 Consultations:: List each consultation separately and include: 1. Reason for request. 2. Findings. 3. Follow-up Consultations: Medical consult/pulmonology consult as well as podiatry consults appreciated, see notes for more detailed information. Summary of Hospital Course include:: 1. Description of specific treatment plan utilized for patients during their course of treatmen. 2. Summarize the time- course for resolution of acute symptoms and/or regressed behaviors. 3. Describe issues identified and worked on during hospitalization. 4. Describe medication utilized. 5. Describe medical problems identified and treated. 6. Reassessment of suicide risk Summary of Hospital Course: Shortly, Alex Raman is a 29 year old female, with a history of depression, anxiety, and ADHD, denied previous psychiatric admissions, denied previous suicidal attempts, patient initially presented at [facility] with her mother, complaining of worsening depression, inability to function, suicidal ideation, patient required further hospitalization starvation/medication adjustment and acute psychiatric inpatient unit, transfer was uneventful. At the time of admission patient presented with very poor personal hygiene, good ADLs, long/greasy/uncombed blue hair, patient presented to be emotional labile, crying/smiling/laughing. Please see admission note for more detailed information. Over this hospitalization patient obviously presented to be addicted to stimulants, patient also had strong borderline personality traits. Family meeting took place with her mother. Please see community mental health social worker notes and this freelance writer documents for more detailed information. Patient was relatively stabilized on the following medications: Wellbutrin 300 mg daily for ADHD and mood Dr. Huynh resumed Adderall 30 mg twice a day for ADHD? Vistaril was given to the patient 3 times a day as needed for anxiety Ativan 2 mg twice a day and at the nighttime for anxiety stabilization Abilify was initiated but patient reported no improvement with that medication Geodon was started titrated to 20 mg twice a day at the nighttime for mood stabilization Ambien 10 mg at the nighttime for insomnia So far patient tolerated medications well, no side effects observed or reported, aims 0, no EPS. Overall patient improved, patient still has episodes of mood swings but there is no agitation, no aggression, denied suicidal ideations, sleep and appetite good, patient socialized with others, visible in the unit. Patient reached maximum effect from this acute hospitalization, deemed not in any imminent danger to self or others, writing for being discharged. At the time of the discharge patient was considered to pose no imminent danger to self or others, will be following up at [facility], information about follow up appointment, time and address provided to the pt, (see note for more detailed information). It is a patient responsibility to follow up with outpatient clinic, PMD as well as specialists. In case patient will need to obtain results of studies pending at discharge, patient was provided with contact information of Psychiatric Inpatient unit [phone] as well as Medical Record Department [phone], as well as [facility] [employer] Service Man team [phone]. Nicotine patch was provided Naltrexone treatment not indicated, UDS was positive for opioids Counseling about smoking and drugs cessation provided AA meetings as well as smoking cessation treatment program information was provided by the pt was provided with prescriptions see medication reconciliation form Pt was educated about safety plan in case of worsening of symptoms or in case of suicidal or homicidal ideation call 911 or go to the nearest ER, also was educated to take meds as prescribed and stay away from drugs, pt verbalized understanding. Lab Results 03/13/19 07:40: RPR Nonreactive 03/13/19 07:40: TSH 3rd Generation 2.02 03/13/19 07:40: Fasting Glucose 104, Triglycerides 123, Cholesterol 244 H, LDL Cholesterol Direct 156 H, HDL Cholesterol 59 Vital Signs Temp Pulse Resp BP Pulse Ox 03/13/19 06:32 97.5 F L 59 L 18 134/91 H 03/12/19 22:51 98.5 F 82 18 135/93 H 99 03/12/19 19:52 97.8 F 84 16 136/93 H 100 - Diagnosis (1) ADHD Current Visit: Yes Status: Suspected Priority: Low (2) Opioid use disorder Current Visit: Yes Status: Chronic Priority: Medium (3) Bipolar 1 disorder Current Visit: Yes Status: Acute Priority: Medium - Final Diagnosis (DSM 5) Condition upon Discharge: IMPROVED Disposition: HOME/ ROUTINE Follow-up Treatment Plan: [facility] Prescriptions/Medication Reconciliation: amLODIPine [Norvasc] 10 mg PO DAILY #7 tab Atorvastatin [Lipitor] 20 mg PO DIN #7 tab buPROPion XL [Wellbutrin XL] 300 mg PO DAILY #14 t24 Famotidine [Pepcid] 20 mg PO HS #14 tab Fluticasone/Salmeterol 500/50 [Advair Diskus 500/50] 1 puff INH Q12 #1 puff hydrOXYzine Pamoate [Vistaril] 50 mg PO Q8 PRN #45 cap PRN Reason: Anxiety LORazepam [Ativan] 2 mg PO BID #30 tab Nicotine 7 mg/24 hr [Nicoderm CQ] 1 patch TD DAILY #14 patch Ziprasidone [Geodon Cap] 20 mg PO TID #45 cap Zolpidem [Ambien] 10 mg PO HS #10 tab - Tobacco Cessation Tobacco Use Status for the last 30 days: Light User(<=4 cigs daily, cigar/pipes not daily,or smokeless tobacco) Tobacco Use Treatment Practical Counseling Provided: Yes Tobacco Use Treatment FDA-Approved Cessation Medication Provided: Yes Type of Medication Provided: Nicoderm CQ Smoking Cessation Prescription was given: Yes - Alcohol or Substance Abuse Does the patient have an Alcohol or Substance Abuse Disorder: Yes A prescription for an FDA-approved medication for alcohol and drug dependence w as given to the patient at discharge: No If no,reason for not providing: denied drinking alcohol - Antipsychotic Medications Pt discharged on 2 or more routine antipsychotic medications: No
== END 2019-03-22 19:06 | disposition home or self-care (01) | DRG 430 ==
LOC: ED 19:06 → ERH 19:35 → PSYC 20:19
PROVIDERS: ADMIT Psychiatry & Neurology Psychiatry; ATTEND Psychiatry & Neurology Psychiatry
DX: F31.9 Bipolar disorder, unspecified (principal); J44.9 Chronic obstructive pulmonary disease, unspecified; F11.90 Opioid use, unspecified, uncomplicated; F90.9 Attention-deficit hyperactivity disorder, unspecified type; F17.290 Nicotine dependence, other tobacco product, uncomplicated; G47.00 Insomnia, unspecified; I10 Essential (primary) hypertension; E78.00 Pure hypercholesterolemia, unspecified; F41.9 Anxiety disorder, unspecified; G47.33 Obstructive sleep apnea (adult) (pediatric); Z86.19 Personal history of other infectious and parasitic diseases